=== PATIENT | male | born 1950 | race Caucasian/White ===

== ENCOUNTER 2021-09-15 15:05 | Inpatient (IN) | payer OTHER, SELFPAY ==
[2021-09-15] VITALS (7 sets, daily range): BP systolic 137–160; BP diastolic 59–105; PULSE 75–90; RESP 15–24; TEMP 36.2–36.9; O2SAT 96–98; BMI 33.6; BMI 37.0
--- NOTE | 2021-09-15 15:11 | DI.RAD.S_ITS ---
PROCEDURE: XR HIP W PEL IF DONE LT 2V INDICATIONS: pain fall TECHNIQUE: AP pelvis with lateral view(s) of the left hip(s). COMPARISON: None. FINDINGS: Bones: Moderately displaced and angulated comminuted fracture of the left intertrochanteric femur. Chronic appearing left obturator ring fracture. ORIF of the symphysis pubis. Soft tissues: The visualized bowel gas pattern is normal. No suspicious soft tissue calcifications. IMPRESSION: Left proximal femur fracture. Dictated by: Linsey Tyson M.D. on 09/15/2021 at 16:24 Approved by: Linsey Tyson M.D. on 09/15/2021 at 16:25
[2021-09-15] MEDS: HYDROMORPHONE 1 MG INJ IM ×2 (15:40→16:30)
--- NOTE | 2021-09-15 16:07 | ED_ITS ---
HPI - Fall <DO Sony Jett Last Filed: 09/15/21 20:45> General Chief Complaint: Fall Stated Complaint: Fall with Lt. hip pain Time Seen by Provider: 09/15/21 15:11 History of Present Illness HPI Narrative: Patient is a 70-year-old male history of type 2 diabetes noncompliant with medication anxiety depression presenting today with left hip pain. He is here from [place] trying to packing is are be ready for a RV trip. He was putting the car on the litzy and could not open the door so crawled out the clark driver's side window when he fell down. He did not hit his head or lose consciousness. He is not on anti-platelet or anticoagulation medication. He was unable to get himself up off the ground. Called for help for about 30 minutes. EMS eventual ly pain. The patient is having significant left hip pain legs are of equal length. No other injuries. Related Data Home Medications Medication Instructions Recorded Confirmed clonazepam 2 mg tablet 2 mg PO BID 09/15/21 09/15/21 Allergies Allergy/AdvReac Type Severity Reaction Status Date / Time No Known Drug Allergies Allergy Verified 09/15/21 15:16 <Martha Holland [facility] - Last Filed: 09/15/21 20:07> General Source: patient Mode of arrival: EMS Review of Systems <DO Sony Jett Last Filed: 09/15/21 20:45> Review of Systems Narrative: GENERAL: Denies chills, fatigue, malaise, fever, sweats, travel HEENT: Denies sinus pain, ear pain, sore throat, difficulty swallowing, neck pain RESPIRATORY: Denies dyspnea, cough, wheezing, hemoptysis, sputum. CARDIOVASCULAR: Denies chest pain, palpitations, orthopnea, edema GASTROINTESTINAL: Denies nausea, vomiting, abdominal pain, diarrhea, constipation, melena. : Denies dysuria, frequency, incontinence, hematuria, urinary retention, flank pain. MUSCULOSKELETAL: See HPI SKIN: No rash, no erythema, no pruritus NEUROLOGIC: Denies weakness, dizziness, headache, numbness, change in speech, confusion PSYCHIATRIC: No concerning psychosocial issues. 12 point review of systems is negative except for those stated above and HPI Patient History <DO Sony Jett Last Filed: 09/15/21 20:45> Medical History Diabetes Social History household members: spouse Smoking Status: Current every day smoker alcohol intake: current <CATHI Wilkins - Last Filed: 09/15/21 20:07> Smoking Status: Current every day smoker alcohol intake frequency: holidays/special occasions only Substance Use Type: does not use Exam <Deepika Carroll DO - Last Filed: 09/15/21 20:45> Initial Vital Signs Initial Vital Signs: Vital Signs Temperature 98.5 F 09/15/21 15:10 Pulse Rate 80 09/15/21 15:10 Respiratory Rate 15 09/15/21 15:10 Blood Pressure 137/91 H 09/15/21 15:10 Pulse Oximetry 96 09/15/21 15:10 GENERAL: Alert pleasant 70-year-old male BMI 33 HEENT: Head atraumatic,EOMI, pupils reactive, face symmetric, moist mucous membranes CARDIOVASCULAR: Regular rate and rhythm without murmurs, rubs or gallops. RESPIRATORY: Breath sounds equal bilaterally, no wheezes rales or rhonchi. ABDOMEN: Soft, nontender. Normoactive bowel sounds all 4 quadrants. No guarding or rebou EXTREMITIES: Normal range of motion, no clubbing or edema. Neurovascularly intact. Left lower hip pain no contusion legs are of equal length distal pedal pulse intact NEUROLOGICAL: Alert and oriented x4. Recreational Therapy Technician strength equal bilateral SKIN: Warm, dry, no laceration, no petechiae, no rashes or lesions. <CATHI Wilkins - Last Filed: 09/15/21 20:07> Initial Vital Signs Initial Vital Signs: Vital Signs Temperature 98.5 F 09/15/21 15:10 Pulse Rate 80 09/15/21 15:10 Respiratory Rate 15 09/15/21 15:10 Blood Pressure 137/91 H 09/15/21 15:10 Pulse Oximetry 96 09/15/21 15:10 Course <DO Sony Jett Last Filed: 09/15/21 20:45> Orders Ordered: ED Orders 09/15/21 15:11 XR hip w pel if done LT 2V Stat 09/15/21 16:36 BNP [NT-proBNP (BNP-Adult 18+)] Stat CBC Auto Diff [Complete Blood Count AUTO DIFF] Stat CMP [Comprehensive Metabolic Panel] Stat PT [Prothrombin Time INR] Stat PTT [Partial Thromboplastin Time] Stat Troponin & CK Cardiac Panel Stat 09/15/21 17:05 Chest [XR chest 1V] Stat Acetaminophen (Acetaminophen 325 Mg Tablet) 975 mg PO Q8HR PRN PRN Reason: Fever/Mild Pain (1-3) Dextrose (Dextrose 50 % In Water 25 Gm/50 Ml Syringe) 25 gm IV PRN PRN PRN Reason: Hypoglycemia Hydromorphone HCl (Hydromorphone 0.5 Mg Inj) 1 mg IV Q4H PRN PRN Reason: Breakthrough pain only (8-10) Last Admin: 09/15/21 20:08 Dose: 1 mg Documented by: HARRIS Insulin Human Lispro (Insulin Lispro 100 Unit/Ml 3ml Vial) 0 unit SUBCUT ACHS MARIA ELENA; Protocol Naloxone HCl (Naloxone 0.4 Mg/Ml Vial) 0.2 mg IV Q2MIN PRN PRN Reason: Opiate Reversal Ondansetron HCl (Ondansetron 4 Mg/2 Ml Inj) 4 mg IV Q8HR PRN PRN Reason: Nausea And Vomiting Oxycodone HCl (Oxycodone Ir 5 Mg Tablet) 5 mg PO Q4HR PRN PRN Reason: Pain, Moderate (4-6) Discontinued Medications Hydromorphone HCl (Hydromorphone 1 Mg Inj) 1 mg IM NOW ONE Stop: 09/15/21 15:39 Last Admin: 09/15/21 15:40 Dose: 1 mg Documented by: CHRISTINE Hydromorphone HCl (Hydromorphone 1 Mg Inj) 1 mg IM NOW ONE Stop: 09/15/21 16:21 Last Admin: 09/15/21 16:30 Dose: 1 mg Documented by: CHRISTINE Hydromorphone HCl (Hydromorphone 1 Mg Inj) 1 mg IV NOW ONE Stop: 09/15/21 17:55 Last Admin: 09/15/21 17:58 Dose: 1 mg Documented by: MARIO ALBERTO Vital Signs Vital signs: Vital Signs - 8 hr 09/15/21 15:10 09/15/21 15:11 09/15/21 15:30 Temperature 98.5 F Pulse Rate 76 86 76 Respiratory Rate 15 Blood Pressure 137/91 H 137/91 H Pulse Oximetry 97 97 96 09/15/21 18:00 Temperature Pulse Rate 90 Respiratory Rate 24 Blood Pressure 160/105 H Pulse Oximetry 96 <CATHI Wilkins - Last Filed: 09/15/21 20:07> Orders Ordered: ED Orders 09/15/21 15:11 XR hip w pel if done LT 2V Stat 09/15/21 16:36 BNP [NT-proBNP (BNP-Adult 18+)] Stat CBC Auto Diff [Complete Blood Count AUTO DIFF] Stat CMP [Comprehensive Metabolic Panel] Stat PT [Prothrombin Time INR] Stat PTT [Partial Thromboplastin Time] Stat Troponin & CK Cardiac Panel Stat 09/15/21 17:05 Chest [XR chest 1V] Stat Acetaminophen (Acetaminophen 325 Mg Tablet) 975 mg PO Q8HR PRN PRN Reason: Fever/Mild Pain (1-3) Dextrose (Dextrose 50 % In Water 25 Gm/50 Ml Syringe) 25 gm IV PRN PRN PRN Reason: Hypoglycemia Hydromorphone HCl (Hydromorphone 0.5 Mg Inj) 1 mg IV Q4H PRN PRN Reason: Breakthrough pain only (8-10) Last Admin: 09/15/21 20:08 Dose: 1 mg Documented by: HARRIS Insulin Human Lispro (Insulin Lispro 100 Unit/Ml 3ml Vial) 0 unit SUBCUT ACHS MARIA ELENA; Protocol Naloxone HCl (Naloxone 0.4 Mg/Ml Vial) 0.2 mg IV Q2MIN PRN PRN Reason: Opiate Reversal Ondansetron HCl (Ondansetron 4 Mg/2 Ml Inj) 4 mg IV Q8HR PRN PRN Reason: Nausea And Vomiting Oxycodone HCl (Oxycodone Ir 5 Mg Tablet) 5 mg PO Q4HR PRN PRN Reason: Pain, Moderate (4-6) Discontinued Medications Hydromorphone HCl (Hydromorphone 1 Mg Inj) 1 mg IM NOW ONE Stop: 09/15/21 15:39 Last Admin: 09/15/21 15:40 Dose: 1 mg Documented by: CHRISTINE Hydromorphone HCl (Hydromorphone 1 Mg Inj) 1 mg IM NOW ONE Stop: 09/15/21 16:21 Last Admin: 09/15/21 16:30 Dose: 1 mg Documented by: CHRISTINE Hydromorphone HCl (Hydromorphone 1 Mg Inj) 1 mg IV NOW ONE Stop: 09/15/21 17:55 Last Admin: 09/15/21 17:58 Dose: 1 mg Documented by: MARIO ALBERTO Vital Signs Vital signs: Vital Signs - 8 hr 09/15/21 15:10 09/15/21 15:11 09/15/21 15:30 Temperature 98.5 F Pulse Rate 76 86 76 Respiratory Rate 15 Blood Pressure 137/91 H 137/91 H Pulse Oximetry 97 97 96 09/15/21 18:00 Temperature Pulse Rate 90 Respiratory Rate 24 Blood Pressure 160/105 H Pulse Oximetry 96 MDM - Fall <Deepika Carroll DO - Last Filed: 09/15/21 20:45> Lab Data Result diagrams: 09/15/21 16:36 09/15/21 16:36 Labs: Lab Results 09/15/21 09/15/21 09/15/21 Range/Units 16:36 16:36 16:36 WBC 10.9 (4.5-11.0) X10^3/uL RBC 5.04 (4.5-5.9) X10^6/uL Hgb 15.8 (13.5-17.5) g/dL Hct 45.9 (41-53) % MCV 91.0 (80-100) fL MCH 31.3 (26-34) PG MCHC 34.4 (30-36) % RDW 14.2 (11.6-14.8) % Plt Count 119 L (150-400) X10^3/uL Neut % (Auto) 79.5 H (50-75) % Lymph % (Auto) 13.3 L (25-40) % [place] % (Auto) 5.3 (3-14) % Eos % (Auto) 1.3 L (2-4) % Baso % (Auto) 0.6 (0-2) % Neut # (Auto) 8700 H (1148-0532) /uL Lymph # (Auto) 1500 (0076-0476) /uL [place] # (Auto) 600 (0-900) /uL Eos # (Auto) 100 (0-450) /uL Baso # (Auto) 100 (0-100) /uL PT 12.1 (10.1-12.7) SECONDS INR 1.1 (0.9-1.3) APTT 32 (26.4-36.2) SECONDS Sodium 145 (137-145) mmol/L Potassium 3.4 (3.4-5.1) mmol/L Chloride 109 H (98-107) mmol/L Carbon Dioxide 27 (22-32) mmol/L BUN 19 (9-20) mg/dL Creatinine 1.19 (0.66-1.25) mg/dL Estimated GFR > 60 (>60) mL/min BUN/Creatinine Ratio 16.0 (6-22) Glucose 127 H (80-110) mg/dL Hemoglobin A1c (4.0-6.0) % Calcium 8.6 (8.4-10.2) mg/dL Total Bilirubin 0.6 (0.2-1.3) mg/dL AST 26 (17-59) IU/L ALT 21 (<50) IU/L Alkaline Phosphatase 81 (38-126) U/L Total Creatine Kinase (55-170) U/L CK-MB (CK-2) (<2.37) ng/mL CK-MB (CK-2) Rel Index (1.5-5.0) % Troponin I (0.01-0.034) ng/mL NT-Pro-B Natriuret Pep (<125) pg/mL Total Protein 7.0 (6.3-8.2) g/dL Albumin 4.2 (3.5-5.0) g/dL Globulin 2.8 (1.7-4.1) g/dL Albumin/Globulin Ratio 1.5 (1.0-2.8) 25-OH Vitamin D Total (30.0-100.0) ng/mL 09/15/21 09/15/21 09/15/21 Range/Units 16:36 16:36 16:36 WBC (4.5-11.0) X10^3/uL RBC (4.5-5.9) X10^6/uL Hgb (13.5-17.5) g/dL Hct (41-53) % MCV (80-100) fL MCH (26-34) PG MCHC (30-36) % RDW (11.6-14.8) % Plt Count (150-400) X10^3/uL Neut % (Auto) (50-75) % Lymph % (Auto) (25-40) % [place] % (Auto) (3-14) % Eos % (Auto) (2-4) % Baso % (Auto) (0-2) % Neut # (Auto) (4480-3409) /uL Lymph # (Auto) (3836-4048) /uL [place] # (Auto) (0-900) /uL Eos # (Auto) (0-450) /uL Baso # (Auto) (0-100) /uL PT (10.1-12.7) SECONDS INR (0.9-1.3) APTT (26.4-36.2) SECONDS Sodium (137-145) mmol/L Potassium (3.4-5.1) mmol/L Chloride (98-107) mmol/L Carbon Dioxide (22-32) mmol/L BUN (9-20) mg/dL Creatinine (0.66-1.25) mg/dL Estimated GFR (>60) mL/min BUN/Creatinine Ratio (6-22) Glucose (80-110) mg/dL Hemoglobin A1c 7.1 H (4.0-6.0) % Calcium (8.4-10.2) mg/dL Total Bilirubin (0.2-1.3) mg/dL AST (17-59) IU/L ALT (<50) IU/L Alkaline Phosphatase (38-126) U/L Total Creatine Kinase 252 H (55-170) U/L CK-MB (CK-2) 3.27 H (<2.37) ng/mL CK-MB (CK-2) Rel Index 1.3 L (1.5-5.0) % Troponin I 0.043 H (0.01-0.034) ng/mL NT-Pro-B Natriuret Pep 1390 H (<125) pg/mL Total Protein (6.3-8.2) g/dL Albumin (3.5-5.0) g/dL Globulin (1.7-4.1) g/dL Albumin/Globulin Ratio (1.0-2.8) 25-OH Vitamin D Total 17.9 L (30.0-100.0) ng/mL Imaging Data Extremity x-ray #1: Radiologist's Impression: [place] [address] XRay Report Signed Patient: Damien Dickens MR#: [id number] : 1950 Acct:[id number] Age/Sex: 70 / M Date of Service: 09/15/21 Loc: ED Accession Number: [id number] ?? Procedure: XR hip w pel if done LT 2V Ordering Provider: Deepika Carroll D.O. PROCEDURE:? XR HIP W PEL IF DONE LT 2V ? INDICATIONS:? pain fall ? TECHNIQUE:? AP pelvis with lateral view(s) of the left hip(s).? ? COMPARISON:? None. ? FINDINGS:? ? Bones:? Moderately displaced and angulated comminuted fracture of the left intertrochanteric femur.? Chronic appearing left obturator ring fracture.? ORIF of the symphysis pubis. ? Soft tissues:? The visualized bowel gas pattern is normal.? No suspicious soft tissue calcifications.? ? ? IMPRESSION:? Left proximal femur fracture. ? Dictated by: Linsey Tyson M.D. on 09/15/2021 at 16:24 ? ? Chest x-ray: Radiologist's Impression: [address] [place] [id number] XRay Report Signed Patient: Damien Dickens MR#: [id number] : 1950 Acct:[id number] Age/Sex: 70 / M Date of Service: 09/15/21 Loc: ED Accession Number: [id number] ?? Procedure: XR chest 1V Ordering Provider: Deepika Carroll D.O. PROCEDURE:? XR CHEST 1V ? INDICATIONS:? fall ? TECHNIQUE:? One view of the chest was acquired.? ? COMPARISON:? None. ? FINDINGS:? ? Surgical changes and devices:? None.? ? Lungs and pleura:? There are infiltrates in upper lobes bilaterally, right greater than left.? Diffuse interstitial prominence.? No pleural effusions or pneumothorax.? ? Mediastinum:? Mediastinal contours appear normal.? Heart size is mildly increased.? ? Bones and chest wall:? No suspicious bony lesions.? Overlying soft tissues appear unremarkable.? ? IMPRESSION:? ? 1. Infiltrates in upper lobes, right greater than left. 2. Diffuse bilateral interstitial prominence.? There is mild cardiomegaly.? The findings may be secondary to mild CHF or interstitial lung disease.? Recommend clinical correlation.? ? Dictated by: Chapo Joseph M.D. on 09/15/2021 at 17:29 ? ? MDM Narrative Medical decision making narrative: Patient overall is well appearing. He initially was a very hard IV start however we eventually did get 1. His PICC line called for midline of the secondary back up. Patient overall appears well pain is controlled with Dilaudid. Dr. Garcia updated patient's symptoms test results will likely go to the OR tomorrow. Dr. Farnsworth accepts patient <Martha Holland [facility] - Last Filed: 09/15/21 20:07> Lab Data Labs: Lab Results 09/15/21 09/15/21 09/15/21 Range/Units 16:36 16:36 16:36 WBC 10.9 (4.5-11.0) X10^3/uL RBC 5.04 (4.5-5.9) X10^6/uL Hgb 15.8 (13.5-17.5) g/dL Hct 45.9 (41-53) % MCV 91.0 (80-100) fL MCH 31.3 (26-34) PG MCHC 34.4 (30-36) % RDW 14.2 (11.6-14.8) % Plt Count 119 L (150-400) X10^3/uL Neut % (Auto) 79.5 H (50-75) % Lymph % (Auto) 13.3 L (25-40) % [place] % (Auto) 5.3 (3-14) % Eos % (Auto) 1.3 L (2-4) % Baso % (Auto) 0.6 (0-2) % Neut # (Auto) 8700 H (2200-3683) /uL Lymph # (Auto) 1500 (6960-0455) /uL [place] # (Auto) 600 (0-900) /uL Eos # (Auto) 100 (0-450) /uL Baso # (Auto) 100 (0-100) /uL PT 12.1 (10.1-12.7) SECONDS INR 1.1 (0.9-1.3) APTT 32 (26.4-36.2) SECONDS Sodium 145 (137-145) mmol/L Potassium 3.4 (3.4-5.1) mmol/L Chloride 109 H (98-107) mmol/L Carbon Dioxide 27 (22-32) mmol/L BUN 19 (9-20) mg/dL Creatinine 1.19 (0.66-1.25) mg/dL Estimated GFR > 60 (>60) mL/min BUN/Creatinine Ratio 16.0 (6-22) Glucose 127 H (80-110) mg/dL Hemoglobin A1c (4.0-6.0) % Calcium 8.6 (8.4-10.2) mg/dL Total Bilirubin 0.6 (0.2-1.3) mg/dL AST 26 (17-59) IU/L ALT 21 (<50) IU/L Alkaline Phosphatase 81 (38-126) U/L Total Creatine Kinase (55-170) U/L CK-MB (CK-2) (<2.37) ng/mL CK-MB (CK-2) Rel Index (1.5-5.0) % Troponin I (0.01-0.034) ng/mL NT-Pro-B Natriuret Pep (<125) pg/mL Total Protein 7.0 (6.3-8.2) g/dL Albumin 4.2 (3.5-5.0) g/dL Globulin 2.8 (1.7-4.1) g/dL Albumin/Globulin Ratio 1.5 (1.0-2.8) 25-OH Vitamin D Total (30.0-100.0) ng/mL 09/15/21 09/15/21 09/15/21 Range/Units 16:36 16:36 16:36 WBC (4.5-11.0) X10^3/uL RBC (4.5-5.9) X10^6/uL Hgb (13.5-17.5) g/dL Hct (41-53) % MCV (80-100) fL MCH (26-34) PG MCHC (30-36) % RDW (11.6-14.8) % Plt Count (150-400) X10^3/uL Neut % (Auto) (50-75) % Lymph % (Auto) (25-40) % [place] % (Auto) (3-14) % Eos % (Auto) (2-4) % Baso % (Auto) (0-2) % Neut # (Auto) (9778-8378) /uL Lymph # (Auto) (6913-4695) /uL [place] # (Auto) (0-900) /uL Eos # (Auto) (0-450) /uL Baso # (Auto) (0-100) /uL PT (10.1-12.7) SECONDS INR (0.9-1.3) APTT (26.4-36.2) SECONDS Sodium (137-145) mmol/L Potassium (3.4-5.1) mmol/L Chloride (98-107) mmol/L Carbon Dioxide (22-32) mmol/L BUN (9-20) mg/dL Creatinine (0.66-1.25) mg/dL Estimated GFR (>60) mL/min BUN/Creatinine Ratio (6-22) Glucose (80-110) mg/dL Hemoglobin A1c 7.1 H (4.0-6.0) % Calcium (8.4-10.2) mg/dL Total Bilirubin (0.2-1.3) mg/dL AST (17-59) IU/L ALT (<50) IU/L Alkaline Phosphatase (38-126) U/L Total Creatine Kinase 252 H (55-170) U/L CK-MB (CK-2) 3.27 H (<2.37) ng/mL CK-MB (CK-2) Rel Index 1.3 L (1.5-5.0) % Troponin I 0.043 H (0.01-0.034) ng/mL NT-Pro-B Natriuret Pep 1390 H (<125) pg/mL Total Protein (6.3-8.2) g/dL Albumin (3.5-5.0) g/dL Globulin (1.7-4.1) g/dL Albumin/Globulin Ratio (1.0-2.8) 25-OH Vitamin D Total 17.9 L (30.0-100.0) ng/mL Discharge Plan Departure Patient Disposition: Admitted As Inpatient Clinical Impression: Fracture, proximal femur Admit Date/Time: 09/15/21 18:22 Admit Provider: Papo Farnsworth
--- NOTE | 2021-09-15 16:21 | ED.FALL ---
HPI - Fall General Chief Complaint: Fall Stated Complaint: Fall with Lt. hip pain Time Seen by Provider: 09/15/21 15:11 Source: patient Mode of arrival: EMS History of Present Illness HPI Narrative: The patient is a 70-year-old male Related Data Home Medications Medication Instructions Recorded Confirmed clonazepam 2 mg tablet 2 mg PO BID 09/15/21 09/15/21 Allergies Allergy/AdvReac Type Severity Reaction Status Date / Time No Known Drug Allergies Allergy Verified 09/15/21 15:16 Patient History Medical History Diabetes Social History household members: spouse Smoking Status: Current every day smoker alcohol intake: current Smoking Status: Current every day smoker alcohol intake frequency: holidays/special occasions only Substance Use Type: does not use Exam Initial Vital Signs Initial Vital Signs: Vital Signs Temperature 98.5 F 09/15/21 15:10 Pulse Rate 80 09/15/21 15:10 Respiratory Rate 15 09/15/21 15:10 Blood Pressure 137/91 H 09/15/21 15:10 Pulse Oximetry 96 09/15/21 15:10 Course Orders Ordered: ED Orders 09/15/21 15:11 XR hip w pel if done LT 2V Stat 09/15/21 16:36 BNP [NT-proBNP (BNP-Adult 18+)] Stat CBC Auto Diff [Complete Blood Count AUTO DIFF] Stat CMP [Comprehensive Metabolic Panel] Stat PT [Prothrombin Time INR] Stat PTT [Partial Thromboplastin Time] Stat Troponin & CK Cardiac Panel Stat 09/15/21 17:05 Chest [XR chest 1V] Stat Acetaminophen (Acetaminophen 325 Mg Tablet) 975 mg PO Q8HR PRN PRN Reason: Fever/Mild Pain (1-3) Dextrose (Dextrose 50 % In Water 25 Gm/50 Ml Syringe) 25 gm IV PRN PRN PRN Reason: Hypoglycemia Hydromorphone HCl (Hydromorphone 0.5 Mg Inj) 1 mg IV Q4H PRN PRN Reason: Breakthrough pain only (8-10) Last Admin: 09/15/21 20:08 Dose: 1 mg Documented by: HARRIS Insulin Human Lispro (Insulin Lispro 100 Unit/Ml 3ml Vial) 0 unit SUBCUT ACHS MARIA ELENA; Protocol Naloxone HCl (Naloxone 0.4 Mg/Ml Vial) 0.2 mg IV Q2MIN PRN PRN Reason: Opiate Reversal Ondansetron HCl (Ondansetron 4 Mg/2 Ml Inj) 4 mg IV Q8HR PRN PRN Reason: Nausea And Vomiting Oxycodone HCl (Oxycodone Ir 5 Mg Tablet) 5 mg PO Q4HR PRN PRN Reason: Pain, Moderate (4-6) Discontinued Medications Hydromorphone HCl (Hydromorphone 1 Mg Inj) 1 mg IM NOW ONE Stop: 09/15/21 15:39 Last Admin: 09/15/21 15:40 Dose: 1 mg Documented by: CHRISTINE Hydromorphone HCl (Hydromorphone 1 Mg Inj) 1 mg IM NOW ONE Stop: 09/15/21 16:21 Last Admin: 09/15/21 16:30 Dose: 1 mg Documented by: CHRISTINE Hydromorphone HCl (Hydromorphone 1 Mg Inj) 1 mg IV NOW ONE Stop: 09/15/21 17:55 Last Admin: 09/15/21 17:58 Dose: 1 mg Documented by: MARIO ALBERTO Vital Signs Vital signs: Vital Signs - 8 hr 09/15/21 15:10 09/15/21 15:11 09/15/21 15:30 Temperature 98.5 F Pulse Rate 76 86 76 Respiratory Rate 15 Blood Pressure 137/91 H 137/91 H Pulse Oximetry 97 97 96 09/15/21 18:00 Temperature Pulse Rate 90 Respiratory Rate 24 Blood Pressure 160/105 H Pulse Oximetry 96 - Fall Lab Data Result diagrams: 09/15/21 16:36 09/15/21 16:36 Labs: Lab Results 09/15/21 09/15/21 09/15/21 Range/Units 16:36 16:36 16:36 WBC 10.9 (4.5-11.0) X10^3/uL RBC 5.04 (4.5-5.9) X10^6/uL Hgb 15.8 (13.5-17.5) g/dL Hct 45.9 (41-53) % MCV 91.0 (80-100) fL MCH 31.3 (26-34) PG MCHC 34.4 (30-36) % RDW 14.2 (11.6-14.8) % Plt Count 119 L (150-400) X10^3/uL Neut % (Auto) 79.5 H (50-75) % Lymph % (Auto) 13.3 L (25-40) % [place] % (Auto) 5.3 (3-14) % Eos % (Auto) 1.3 L (2-4) % Baso % (Auto) 0.6 (0-2) % Neut # (Auto) 8700 H (1206-7511) /uL Lymph # (Auto) 1500 (0590-9672) /uL [place] # (Auto) 600 (0-900) /uL Eos # (Auto) 100 (0-450) /uL Baso # (Auto) 100 (0-100) /uL PT 12.1 (10.1-12.7) SECONDS INR 1.1 (0.9-1.3) APTT 32 (26.4-36.2) SECONDS Sodium 145 (137-145) mmol/L Potassium 3.4 (3.4-5.1) mmol/L Chloride 109 H (98-107) mmol/L Carbon Dioxide 27 (22-32) mmol/L BUN 19 (9-20) mg/dL Creatinine 1.19 (0.66-1.25) mg/dL Estimated GFR > 60 (>60) mL/min BUN/Creatinine Ratio 16.0 (6-22) Glucose 127 H (80-110) mg/dL Hemoglobin A1c (4.0-6.0) % Calcium 8.6 (8.4-10.2) mg/dL Total Bilirubin 0.6 (0.2-1.3) mg/dL AST 26 (17-59) IU/L ALT 21 (<50) IU/L Alkaline Phosphatase 81 (38-126) U/L Total Creatine Kinase (55-170) U/L CK-MB (CK-2) (<2.37) ng/mL CK-MB (CK-2) Rel Index (1.5-5.0) % Troponin I (0.01-0.034) ng/mL NT-Pro-B Natriuret Pep (<125) pg/mL Total Protein 7.0 (6.3-8.2) g/dL Albumin 4.2 (3.5-5.0) g/dL Globulin 2.8 (1.7-4.1) g/dL Albumin/Globulin Ratio 1.5 (1.0-2.8) 25-OH Vitamin D Total (30.0-100.0) ng/mL 09/15/21 09/15/21 09/15/21 Range/Units 16:36 16:36 16:36 WBC (4.5-11.0) X10^3/uL RBC (4.5-5.9) X10^6/uL Hgb (13.5-17.5) g/dL Hct (41-53) % MCV (80-100) fL MCH (26-34) PG MCHC (30-36) % RDW (11.6-14.8) % Plt Count (150-400) X10^3/uL Neut % (Auto) (50-75) % Lymph % (Auto) (25-40) % Harnett % (Auto) (3-14) % Eos % (Auto) (2-4) % Baso % (Auto) (0-2) % Neut # (Auto) (0322-3068) /uL Lymph # (Auto) (6785-1503) /uL Harnett # (Auto) (0-900) /uL Eos # (Auto) (0-450) /uL Baso # (Auto) (0-100) /uL PT (10.1-12.7) SECONDS INR (0.9-1.3) APTT (26.4-36.2) SECONDS Sodium (137-145) mmol/L Potassium (3.4-5.1) mmol/L Chloride (98-107) mmol/L Carbon Dioxide (22-32) mmol/L BUN (9-20) mg/dL Creatinine (0.66-1.25) mg/dL Estimated GFR (>60) mL/min BUN/Creatinine Ratio (6-22) Glucose (80-110) mg/dL Hemoglobin A1c 7.1 H (4.0-6.0) % Calcium (8.4-10.2) mg/dL Total Bilirubin (0.2-1.3) mg/dL AST (17-59) IU/L ALT (<50) IU/L Alkaline Phosphatase (38-126) U/L Total Creatine Kinase 252 H (55-170) U/L CK-MB (CK-2) 3.27 H (<2.37) ng/mL CK-MB (CK-2) Rel Index 1.3 L (1.5-5.0) % Troponin I 0.043 H (0.01-0.034) ng/mL NT-Pro-B Natriuret Pep 1390 H (<125) pg/mL Total Protein (6.3-8.2) g/dL Albumin (3.5-5.0) g/dL Globulin (1.7-4.1) g/dL Albumin/Globulin Ratio (1.0-2.8) 25-OH Vitamin D Total 17.9 L (30.0-100.0) ng/mL Discharge Plan Departure Admit Date/Time: 09/15/21 18:22 Admit Provider: Papo Farnsworth
[2021-09-15 16:41] LABS: Add Manual Diff / Slide Review NO; Basophils Absolute Auto 100 /uL (0-100); Basophils Percent Auto 0.6 % (0-2); Eosinophils Absolute Auto 100 /uL (0-450); Eosinophils Percent Auto 1.3 % (2-4); Hematocrit 45.9 % (41-53); Hemoglobin 15.8 g/dL (13.5-17.5); Lymphocytes Absolute Auto 1500 /uL (1100-4500); Lymphocytes Percent Auto 13.3 % (25-40); Mean Corpuscular HGB Conc 34.4 % (30-36); Mean Corpuscular Hemoglobin 31.3 PG (26-34); Monocytes Absolute Auto 600 /uL (0-900); Monocytes Percent Auto 5.3 % (3-14); Neutrophils Absolute Auto 8700 /uL (1500-7000); Neutrophils Percent Auto 79.5 % (50-75); Platelet Count 119 X10^3/uL (150-400); Red Blood Cell Count 5.04 X10^6/uL (4.5-5.9); Red Cell Distribution Width 14.2 % (11.6-14.8); White Blood Cell Count 10.9 X10^3/uL (4.5-11.0)
[2021-09-15 16:51] LABS: INR 1.1 (0.9-1.3); Prothrombin Time 12.1 SECONDS (10.1-12.7)
[2021-09-15 16:53] LABS: PTT Partial Thromboplastin Tim 32 SECONDS (26.4-36.2)
[2021-09-15 17:00] LABS: Alanine Aminotransferase 21 IU/L (<50); Albumin 4.2 g/dL (3.5-5.0); Albumin Globulin Ratio 1.5 (1.0-2.8); Alkaline Phosphatase 81 U/L (38-126); Aspartate Aminotransferase 26 IU/L (17-59); Bilirubin Total 0.6 mg/dL (0.2-1.3); Blood Urea Nitrogen 19 mg/dL (9-20); Calcium 8.6 mg/dL (8.4-10.2); Carbon Dioxide 27 mmol/L (22-32); Chloride 109 mmol/L (98-107); Estimated Glomerular Filt Rate > 60 mL/min (>60); Globulin 2.8 g/dL (1.7-4.1); Glucose 127 mg/dL (80-110); HEMOLYSIS < 15 (0-50); Potassium 3.4 mmol/L (3.4-5.1); Sodium 145 mmol/L (137-145)
--- NOTE | 2021-09-15 17:05 | DI.RAD.S_ITS ---
PROCEDURE: XR CHEST 1V INDICATIONS: fall TECHNIQUE: One view of the chest was acquired. COMPARISON: None. FINDINGS: Surgical changes and devices: None. Lungs and pleura: There are infiltrates in upper lobes bilaterally, right greater than left. Diffuse interstitial prominence. No pleural effusions or pneumothorax. Mediastinum: Mediastinal contours appear normal. Heart size is mildly increased. Bones and chest wall: No suspicious bony lesions. Overlying soft tissues appear unremarkable. IMPRESSION: 1. Infiltrates in upper lobes, right greater than left. 2. Diffuse bilateral interstitial prominence. There is mild cardiomegaly. The findings may be secondary to mild CHF or interstitial lung disease. Recommend clinical correlation. Dictated by: Chapo Joseph M.D. on 09/15/2021 at 17:29 Approved by: Chapo Joseph M.D. on 09/15/2021 at 17:31
[2021-09-15] MEDS: HYDROMORPHONE 1 MG INJ IV (17:58)
[2021-09-15 18:09] LABS: Creatine Kinase 252 U/L (55-170)
[2021-09-15 18:22] LABS: NT-proBNP (BNP-Adult 18+) 1390 pg/mL (<125); Troponin I 0.043 ng/mL (0.01-0.034)
[2021-09-15 18:24] LABS: CKMB % Relative Index 1.3 % (1.5-5.0); Creatine Kinase MB 3.27 ng/mL (<2.37)
--- NOTE | 2021-09-15 18:59 | DI.ECHO.S_ITS ---
[facility] +---------+ : : [address] : [address] : : : : [id number] : : : : Phone: [phone]---------+ Echocardiogram Report + + :Name: CHARLY DESHPANDE Study Date: 09/16/2021 Height: 67 in : :[facility] ReadingLocation: Weight: 236 lb : : Gender: Male BSA: 2.2 m2 : :: 1950 Age: 70 yrs BP: 130/69 mmHg: :Reason For Study: SOB : :Ordering Physician: MANJIT, : :FELA FOY Performed By: Donovan Joshi : :Referring: FELA SARAVIA : + + Interpretation Summary The left ventricle is normal in size. Left ventricular systolic function is moderately reduced. The ejection fraction is estimated to be 35-40%. There is mild global hypokinesis of the left ventricle. There is mid anterolateral wall severe hypokinesis. There is apical lateral wall severe hypokinesis. Diastolic function could not be accurately assessed due to unobtainable data. The right ventricle is normal in size and function. Pulmonary artery pressures cannot be estimated because of the lack of a measurable TR jet velocity. Both atria are normal in size. There is no significant valvular heart disease. The aortic root is normal size. Procedure: A two-dimensional transthoracic echocardiogram with color flow and Doppler was performed. The study quality was technically difficult. There is no prior echocardiogram noted for this patient. A contrast injection of Definity was performed to improve assessment of LV function. Left Ventricle: The left ventricle is normal in size. There is mild concentric left ventricular hypertrophy. Left ventricular systolic function is moderately reduced. The ejection fraction is estimated to be 35-40%. There is mild global hypokinesis of the left ventricle. There is mid anterolateral wall severe hypokinesis. There is apical lateral wall severe hypokinesis. Diastolic function could not be accurately assessed due to unobtainable data. Right Ventricle: The right ventricle is normal in size and function. Atria: Both atria are normal in size. The interatrial septum grossly appears intact with no obvious evidence for an atrial septal defect. Mitral Valve: The mitral valve is normal in structure and function. There is trace mitral regurgitation. Aortic Valve: There is mild aortic valve sclerosis. No aortic regurgitation is present. Tricuspid Valve: The tricuspid valve is normal in structure and function. There is a trace or physiologic amount of tricuspid regurgitation. Pulmonary artery pressures cannot be estimated because of the lack of a measurable TR jet velocity. Pulmonic Valve: The pulmonic valve is normal in structure and function. There is no pulmonic valvular regurgitation. There is no significant valvular heart disease. Great Vessels: The aortic root is normal size. The ascending aorta could not be visualized. The IVC is of normal diameter and collapses greater than 50% with a sniff. This suggests a low right atrial pressure of 3 mm Hg. Pericardium/ Pleura There is no pericardial effusion. There is no pleural effusion. MMode/2D Measurements & Calculations LVIDd: 5.5 cm LVOT diam: 2.1 cm LVIDs: 4.3 cm Ao root diam: 3.1 cm FS: 22.0 % IVSd: 1.3 cm LVPWd: 1.3 cm LV lopez. diameter/BSA (cm/m^2): 2.5 LV sys. diameter/BSA (cm/m^2): 2.0 LA A2 area: 17.2 cm2 RA long axis: 5.2 cm LA A4 area: 20.9 cm2 RA area: 17.4 cm2 LA length (vol): 6.2 cm RA vol: 49.3 ml LA vol: 49.4 ml RA : 22.7 ml/m2 LA vol index: 22.8 ml/m2 TAPSE: 2.1 cm Doppler Measurements & Calculations Ao V2 max: 165.3 cm/sec LVOT Max Forrest: 90.1 cm/sec Ao V2 mean: 114.6 cm/sec LV V1 max P.2 mmHg Ao max P.9 mmHg LV V1 VTI: 17.8 cm Ao mean P.8 mmHg ENZO(I,D): 2.1 cm2 Ao V2 VTI: 29.2 cm ENZO(V,D): 1.9 cm2 sev ratio: 0.61 ENZO indexed to BSA (cm^2/m^2): 0.98 MV E max forrest: 74.6 cm/sec SV(LVOT): 61.9 ml MV A max forrest: 97.5 cm/sec MV E/A: 0.77 Med Peak E' Forrest: 4.9 cm/sec E/E' med: 15.1 Lat Peak E' Forrest: 4.9 cm/sec E/E' lat: 15.1 E/e' average: 15.1 MV dec time: 0.29 sec Reading Physician:08:54 AM
--- NOTE | 2021-09-15 19:02 | PC.NURSE ---
Pt arrived from ED at 1635, A&Ox3, disoriented to location (he knew he was at the hospital but could not remember the name of the town). C/o 12/10 pain to L hip, but does not appear to be in any acute distress. VSS on RA, lung sounds diminished, bowel tones present. +radial and +pedal pulses, neuropathy to bilat UE/LE at baseline. Last BM this am, loose at baseline. Pt oriented to room and call light, provided with sandwich and pudding. Will continue to monitor.
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
[2021-09-15 20:07] LABS: Hemoglobin A1C% w Est Avg Glu 7.1 % (4.0-6.0)
[2021-09-15] MEDS: HYDROMORPHONE 0.5 MG INJ 1 MG IV (20:08)
[2021-09-15 20:22] LABS: Vitamin D 25 Hydroxy (D3) 17.9 ng/mL (30.0-100.0)
--- NOTE | 2021-09-15 21:07 | PM.HP.1 ---
History of Present Illness History of Present Illness Date Patient Seen: 09/15/21 Time Patient Seen: 20:45 Chief complaint: Fall with Lt. hip pain Narrative: Damien Dickens is a 70-year-old male traveling from his home state of [place]. He is a difficult historian and goes off on tangents when providing history. Had a family member in the area that had sold him a motor home and he had planned on placing his car on a ramp trailer. From what I could gather it sounded like between the car and the ramp trailer he was unable to get the car firmly secured on the ramp trailer. He went inside the car and when he was ready to get out of the car he was unable to open the door so he crawled out the window, fell landing on his left hip. He denies hitting his head, he does have a scar on his nose after having undergone what appears to be Mohs surgery for basal cell carcinoma, he denies blacking out, headaches, visual changes, difficulty swallowing, shortness of breath, chest pain, nausea vomiting, dysuria, he does state he has chronic diarrhea due to having his gallbladder removed and insists on taking Imodium scheduled. He is also diabetic however he quit taking metformin because his brother is ?a DrEvelin Of chemistry, makes a lot of money and knows what he is talking about. He is without a PCP in [place] , she relocated to a different area and he has had a hard time finding a new one. It is unclear where he actually resides as he states he was living in [place] but apparently keeps a legal address in [place]. Chest x-ray ordered in the ED indicated bilateral interstitial prominence and mild cardiomegaly possibly secondary to mild CHF for interstitial lung disease. He did have a proBNP of 1300. X-ray of the left hip indicates moderately displaced and angulated comminuted fracture of the left intratrochanteric femur and a chronic appearing left obturator ring fracture. Is afebrile, blood pressure 155/88, heart rate 83, respiratory rate 16, oxygen saturation 97% on room air he weighs 107.5 kg with a BMI of 37. Patient History Medical History (Updated 09/15/21 @ 23:03 by CATHI Suero) Anxiety disorder Diabetes type 2, uncontrolled Morbid obesity with BMI of 40.0-44.9, adult Surgical History (Updated 09/15/21 @ 23:01 by CATHI Suero) Hx of cholecystectomy Family & Social History Family History (Updated 09/15/21 @ 23:03 by CATHI Suero) Mother Status cardiac pacemaker Father Fall down stairs Son Leukemia Social History: household members spouse Prior Living Arrangements RV Safety & Behavioral: Feels Safe in Current Yes Environment Been Physically Hurt or No Threatened By a Person Tobacco & Substance use: Tobacco type cigars Smoking Status Current every day smoker alcohol intake current alcohol intake frequency holiday/special occasion Substance Use Type does not use Meds Home Medications and Allergies Home Medications Medication Instructions Recorded Confirmed Type clonazepam 2 mg tablet 2 mg PO BID 09/15/21 09/15/21 History Allergies Allergy/AdvReac Type Severity Reaction Status Date / Time No Known Drug Allergies Allergy Verified 09/15/21 15:16 Review of Systems Review of Systems ROS: Yes All systems reviewed with the patient and are negative except as otherwise documented Exam Vital Signs (past 8 hours): - 09/15/21 15:10 09/15/21 15:11 09/15/21 15:30 Temperature 98.5 F Pulse Rate 76 86 76 Respiratory Rate 15 Blood Pressure 137/91 H 137/91 H Pulse Oximetry 97 97 96 09/15/21 18:00 09/15/21 18:56 Temperature Pulse Rate 90 83 Respiratory Rate 24 16 Blood Pressure 160/105 H 155/88 H Pulse Oximetry 96 97 Oxygen Delivery Method Room Air Objective Labs Result Diagrams: 09/15/21 16:36 09/15/21 16:36 Labs: Laboratory Results - last 24 hr 09/15/21 09/15/21 09/15/21 16:36 16:36 16:36 WBC 10.9 RBC 5.04 Hgb 15.8 Hct 45.9 MCV 91.0 MCH 31.3 MCHC 34.4 RDW 14.2 Plt Count 119 L Neut % (Auto) 79.5 H Lymph % (Auto) 13.3 L [place] % (Auto) 5.3 Eos % (Auto) 1.3 L Baso % (Auto) 0.6 Neut # (Auto) 8700 H Lymph # (Auto) 1500 [place] # (Auto) 600 Eos # (Auto) 100 Baso # (Auto) 100 PT 12.1 INR 1.1 APTT 32 Sodium 145 Potassium 3.4 Chloride 109 H Carbon Dioxide 27 BUN 19 Creatinine 1.19 Estimated GFR > 60 BUN/Creatinine Ratio 16.0 Glucose 127 H Hemoglobin A1c Calcium 8.6 Total Bilirubin 0.6 AST 26 ALT 21 Alkaline Phosphatase 81 Total Creatine Kinase CK-MB (CK-2) CK-MB (CK-2) Rel Index Troponin I NT-Pro-B Natriuret Pep Total Protein 7.0 Albumin 4.2 Globulin 2.8 Albumin/Globulin Ratio 1.5 25-OH Vitamin D Total 09/15/21 09/15/21 09/15/21 16:36 16:36 16:36 WBC RBC Hgb Hct MCV MCH MCHC RDW Plt Count Neut % (Auto) Lymph % (Auto) [place] % (Auto) Eos % (Auto) Baso % (Auto) Neut # (Auto) Lymph # (Auto) [place] # (Auto) Eos # (Auto) Baso # (Auto) PT INR APTT Sodium Potassium Chloride Carbon Dioxide BUN Creatinine Estimated GFR BUN/Creatinine Ratio Glucose Hemoglobin A1c 7.1 H Calcium Total Bilirubin AST ALT Alkaline Phosphatase Total Creatine Kinase 252 H CK-MB (CK-2) 3.27 H CK-MB (CK-2) Rel Index 1.3 L Troponin I 0.043 H NT-Pro-B Natriuret Pep 1390 H Total Protein Albumin Globulin Albumin/Globulin Ratio 25-OH Vitamin D Total 17.9 L Assessment & Plan Time Spent With Patient Critical Care time: I spent a total of [] minutes of critical care time on this patient's care today; this time is exclusive of procedural time. Quality VTE Deep Vein Thrombosis/Pulmonary Embolism Present on Admission: No
[2021-09-15] MEDS: LOPERAMIDE 2 MG CAPSULE PO (22:50)
[2021-09-15] MEDS: ACETAMINOPHEN 325 MG TABLET 975 MG PO (22:50)
[2021-09-15] MEDS: clonazePAM 0.5 MG TABLET PO (22:50)
[2021-09-15] MEDS: TRAMADOL 50 MG TABLET PO (22:51)
[2021-09-15] MEDS: TRAZODONE 50 MG TABLET PO (22:51)
--- NOTE | 2021-09-15 23:05 | PM.HP.1 ---
History of Present Illness History of Present Illness Chief complaint: Fall with Lt. hip pain Narrative: Damien Dickens is a 70-year-old male traveling from his home state of [place]. He is a difficult historian and goes off on tangents when providing history. Had a family member in the area that had sold him a motor home and he had planned on placing his car on a ramp trailer. From what I could gather it sounded like between the car and the ramp trailer he was unable to get the car firmly secured on the ramp trailer. He went inside the car and when he was ready to get out of the car he was unable to open the door so he crawled out the window, fell landing on his left hip. He denies hitting his head, he does have a scar on his nose after having undergone what appears to be Mohs surgery for basal cell carcinoma, he denies blacking out, headaches, visual changes, difficulty swallowing, shortness of breath, chest pain, nausea vomiting, dysuria, he does state he has chronic diarrhea due to having his gallbladder removed and insists on taking Imodium scheduled. He is also diabetic however he quit taking metformin because his brother is ?a DrEvelin Of chemistry, makes a lot of money and knows what he is talking about. He is without a PCP in [place] , she relocated to a different area and he has had a hard time finding a new one. It is unclear where he actually resides as he states he was living in [place] but apparently keeps a legal address in [place]. Chest x-ray ordered in the ED indicated bilateral interstitial prominence and mild cardiomegaly possibly secondary to mild CHF for interstitial lung disease. He did have a proBNP of 1300. X-ray of the left hip indicates moderately displaced and angulated comminuted fracture of the left intratrochanteric femur and a chronic appearing left obturator ring fracture. Is afebrile, blood pressure 155/88, heart rate 83, respiratory rate 16, oxygen saturation 97% on room air he weighs 107.5 kg with a BMI of 37. Patient History Medical History (Updated 09/15/21 @ 23:03 by CATHI Suero) Anxiety disorder Diabetes type 2, uncontrolled Morbid obesity with BMI of 40.0-44.9, adult Surgical History (Updated 09/15/21 @ 23:01 by CATHI Suero) Hx of cholecystectomy Family & Social History Family History (Updated 09/15/21 @ 23:03 by CATHI Suero) Mother Status cardiac pacemaker Father Fall down stairs Son Leukemia Social History: household members spouse Prior Living Arrangements RV Safety & Behavioral: Feels Safe in Current Yes Environment Been Physically Hurt or No Threatened By a Person Tobacco & Substance use: Tobacco type cigars Smoking Status Current every day smoker alcohol intake current alcohol intake frequency holiday/special occasion Substance Use Type does not use Meds Home Medications and Allergies Home Medications Medication Instructions Recorded Confirmed Type clonazepam 2 mg tablet 2 mg PO BID 09/15/21 09/15/21 History Allergies Allergy/AdvReac Type Severity Reaction Status Date / Time No Known Drug Allergies Allergy Verified 09/15/21 15:16 Review of Systems Review of Systems ROS: Yes All systems reviewed with the patient and are negative except as otherwise documented Exam Vital Signs (past 8 hours): - 09/15/21 15:10 09/15/21 15:11 09/15/21 15:30 Temperature 98.5 F Pulse Rate 76 86 76 Respiratory Rate 15 Blood Pressure 137/91 H 137/91 H Pulse Oximetry 97 97 96 09/15/21 18:00 09/15/21 18:56 Temperature Pulse Rate 90 83 Respiratory Rate 24 16 Blood Pressure 160/105 H 155/88 H Pulse Oximetry 96 97 Oxygen Delivery Method Room Air Narrative Exam Narrative: Gen: Alert, oriented, obese 70 y.o. male, anxious HEENT: normocephalic, atraumatic, conjunctiva clear, sclera non-icteric, nose with extensive scarring over the lower bridge, oral mucosa pink and moist Neck: supple, full ROM, no JVD, trachea is midline Resp: Lungs CTA, non-labored breathing CV: RRR, no murmur or rubs Abd: soft, non-tender, normoactive BTs Skin: no lesions or rashes, dry and intact Neuro: Alert and oriented X 4 w/no focal deficits. Speech clear and coherent. Extremities: Unable to ambulate due to fracture and difficult to turn over, is normally ambulatory, negative Juno?s sign Psyche: odd affect. Objective Labs Result Diagrams: 09/15/21 16:36 09/15/21 16:36 Labs: Laboratory Results - last 24 hr 09/15/21 09/15/21 09/15/21 16:36 16:36 16:36 WBC 10.9 RBC 5.04 Hgb 15.8 Hct 45.9 MCV 91.0 MCH 31.3 MCHC 34.4 RDW 14.2 Plt Count 119 L Neut % (Auto) 79.5 H Lymph % (Auto) 13.3 L [place] % (Auto) 5.3 Eos % (Auto) 1.3 L Baso % (Auto) 0.6 Neut # (Auto) 8700 H Lymph # (Auto) 1500 [place] # (Auto) 600 Eos # (Auto) 100 Baso # (Auto) 100 PT 12.1 INR 1.1 APTT 32 Sodium 145 Potassium 3.4 Chloride 109 H Carbon Dioxide 27 BUN 19 Creatinine 1.19 Estimated GFR > 60 BUN/Creatinine Ratio 16.0 Glucose 127 H Hemoglobin A1c Calcium 8.6 Total Bilirubin 0.6 AST 26 ALT 21 Alkaline Phosphatase 81 Total Creatine Kinase CK-MB (CK-2) CK-MB (CK-2) Rel Index Troponin I NT-Pro-B Natriuret Pep Total Protein 7.0 Albumin 4.2 Globulin 2.8 Albumin/Globulin Ratio 1.5 25-OH Vitamin D Total 09/15/21 09/15/21 09/15/21 16:36 16:36 16:36 WBC RBC Hgb Hct MCV MCH MCHC RDW Plt Count Neut % (Auto) Lymph % (Auto) [place] % (Auto) Eos % (Auto) Baso % (Auto) Neut # (Auto) Lymph # (Auto) [place] # (Auto) Eos # (Auto) Baso # (Auto) PT INR APTT Sodium Potassium Chloride Carbon Dioxide BUN Creatinine Estimated GFR BUN/Creatinine Ratio Glucose Hemoglobin A1c 7.1 H Calcium Total Bilirubin AST ALT Alkaline Phosphatase Total Creatine Kinase 252 H CK-MB (CK-2) 3.27 H CK-MB (CK-2) Rel Index 1.3 L Troponin I 0.043 H NT-Pro-B Natriuret Pep 1390 H Total Protein Albumin Globulin Albumin/Globulin Ratio 25-OH Vitamin D Total 17.9 L Assessment & Plan Assessment & Plan narrative: Filemon Dickens is admitted for further cardiac workup in advance of anticipated left intertrochanteric hip fracture repair. 1. left intertrochanteric hip fracture, acute, present on admission, acute, present on admission Dr. Garcia has seen the patient and plans to take him into the OR in the afternoon Likely NPO after 7:00 a.m. Pain control with scheduled Tylenol, as needed tramadol, oxycodone, IV morphine and IV Dilaudid for breakthrough pain He will need to stop his clonazepam if orthopedic surgery add Ativan to his regimen for extremity cramping. 2. Elevated proBNP, unknown if acute Patient is scheduled for an echocardiogram in the morning, we do not have any records from his PCP in [place] 3. Diabetes type 2 uncontrolled, present on admission with an A1c of 7.1 Patient stop taking metformin at the behest of his brother who he states is a doctor of chemistry Diabetic hyperglycemic orders have been explained to the patient. He will be on a carb controlled diet until the morning than NPO with glucose checks q.6 hours and insulin correction He will need diabetic Education 4. Vitamin-D deficiency likely chronic likely chronic He is initiated on oral vitamin-D 5000 units daily 5. Stated anxiety disorder Patient states he takes clonazepam 0.5 mg twice daily scheduled I have informed the patient that he will not be able to have this if he is given Ativan for muscle spasms Patient presents more bipolar to my mind, flight of thoughts, tangential history. He may benefit from a psych eval. 6. Risk assessment TSH and Lipid panel in the morning VTE Prophylaxis: Wells risk score 1 pharmacological VTE prophylaxis not indicated due to pending surgery[X] Bilateral SCDs Patient is admitted to the inpatient service due to the severity of disease, risks of further disease progression and this stay is expected to exceed 2 midnights. FEN: IV fluids: saline lock, diet: carb controlled diet, then NPO after 0700, labs: CBC, C/BMP, liver enzymes, Mag, PT/INR, type and screen Consultants Dr. Butts, Orthopedic Surgery, care and involvement in the patient?s care is appreciated. Dispo: unknown at this time, may need rehab Code status: He states DNR/DNI discussed with the patient who identifies his ex-, Babs his surrogate and POA. X I have utilized all available immediate resources to obtain, update, or review of the patient's current medications COVID-19 COVID-19 status: Negative Result date/Date tested (Pos, Neg/Pending): 09/15/21 Time Spent With Patient Critical Care time: I spent a total of [] minutes of critical care time on this patient's care today; this time is exclusive of procedural time. Scores Wells' Criteria for PE Clinical signs and symptoms of DVT: No PE is #1 Dx or equally likely: No Heart rate > 100: No Immobilization at least 3 days or surg in previous 4 weeks: No History of PE or DVT: No Hemoptysis: No Malignancy w/Treatment within 6 months or palliative: Yes José Antonio' PE Score total: 1 Quality VTE Deep Vein Thrombosis/Pulmonary Embolism Present on Admission: No MIPS - Admit I confirm the patient?s Advance Care Plan is present, Code status is documented, Surrogate decision maker is in patient?s record [If Yes, STOP here]: Yes MIPS - DC The patient has current or prior documentation of left ventricular ejection fraction (LVEF) less than 40%, or moderate or severely depressed left ventricular systolic function.: No
[2021-09-15] MEDS: INSULIN LISPRO 100 UNIT/ML 3ML VIAL SUBCUT (23:17)
[2021-09-15 23:28] LABS: Troponin I 0.036 ng/mL (0.01-0.034)
[2021-09-16] VITALS (19 sets, daily range): BP systolic 121–164; BP diastolic 49–93; PULSE 61–90; RESP 11–18; TEMP 36.2–37.1; O2SAT 92–98; BMI 37.0
--- NOTE | 2021-09-16 | DI.RAD.S_ITS ---
PROCEDURE: XR FEMUR LT MIN 2V INDICATIONS: left femur fracture TECHNIQUE: 4 views of the femur were acquired. COMPARISON: [facility], CR, XR HIP W PEL IF DONE LT 2V, 09/15/2021, 15:01. [facility], CR, XR FEMUR LT MIN 2V, 09/16/2021, 18:34. FINDINGS: Bones: There are interval postsurgical changes status post ORIF of the previously visualized intertrochanteric fracture of the proximal left femur. There is improved alignment with a new intramedullary bryan, telescoping screws through the left femoral neck, and 2 distal interlocking screws in the distal femoral shaft. No new fractures. A left knee prosthesis is noted. Soft tissues: There are overlying postsurgical changes lateral to the left hip. IMPRESSION: 1. Improved alignment and postsurgical changes status post ORIF of left intertrochanteric femoral fracture. Dictated by: Ephraim Navarrete M.D. on 09/16/2021 at 21:46 Approved by: Ephraim Navarrete M.D. on 09/16/2021 at 21:49
--- NOTE | 2021-09-16 | DI.RAD.S_ITS ---
PROCEDURE: XR FEMUR LT MIN 2V INDICATIONS: post op TECHNIQUE: Multiple intraoperative views of the femur were acquired. COMPARISON: [facility], CR, XR HIP W PEL IF DONE LT 2V, 09/15/2021, 15:01. [facility], CR, XR FEMUR LT MIN 2V, 09/16/2021, 20:29. FINDINGS: Multiple intraoperative fluoroscopic views of the left femur demonstrate open reduction and internal fixation of the previously visualized intertrochanteric fracture with placement of an intramedullary bryan, telescoping screws through the left femoral neck, and fixation screws within the distal femoral shaft. A knee prosthesis is partially visualized. IMPRESSION: 1. Intraoperative images demonstrate ORIF of previously described intertrochanteric fracture of the proximal left femur. Dictated by: Ephraim Navarrete M.D. on 09/16/2021 at 21:40 Approved by: Ephraim Navarrete M.D. on 09/16/2021 at 21:42
[2021-09-16] MEDS: NICOTINE 14 PATCH 14 MG TOP ×2 (01:37→07:57)
[2021-09-16] MEDS: MORPHINE 4 MG/ML INJ IV ×2 (05:34→14:54)
[2021-09-16 06:16] LABS: Add Manual Diff / Slide Review NO; Basophils Absolute Auto 100 /uL (0-100); Basophils Percent Auto 0.8 % (0-2); Eosinophils Absolute Auto 100 /uL (0-450); Eosinophils Percent Auto 1.9 % (2-4); Hematocrit 40.4 % (41-53); Hemoglobin 13.7 g/dL (13.5-17.5); Lymphocytes Absolute Auto 1600 /uL (1100-4500); Lymphocytes Percent Auto 22.4 % (25-40); Mean Corpuscular Volume 91.1 fL (80-100); Monocytes Absolute Auto 700 /uL (0-900); Monocytes Percent Auto 9.8 % (3-14); Neutrophils Absolute Auto 4600 /uL (1500-7000); Neutrophils Percent Auto 65.1 % (50-75); Platelet Count 106 X10^3/uL (150-400); Red Blood Cell Count 4.43 X10^6/uL (4.5-5.9); Red Cell Distribution Width 14.3 % (11.6-14.8); White Blood Cell Count 7.1 X10^3/uL (4.5-11.0)
[2021-09-16 06:24] LABS: Alanine Aminotransferase 16 IU/L (<50); Albumin 3.2 g/dL (3.5-5.0); Albumin Globulin Ratio 1.3 (1.0-2.8); Alkaline Phosphatase 57 U/L (38-126); Aspartate Aminotransferase 20 IU/L (17-59); Bilirubin Total 0.8 mg/dL (0.2-1.3); Bilirubin Unconjugated 0.7 mg/dL (0.0-1.1); Globulin 2.5 g/dL (1.7-4.1); HEMOLYSIS < 15 (0-50); Total Protein 5.7 g/dL (6.3-8.2)
[2021-09-16 06:25] LABS: Cholesterol 135 mg/dL (140-199); HDL Cholesterol 30 mg/dL (40-60); LDL Cholesterol Calculated 72 mg/dL (<100); Triglycerides 165 mg/dL (35-150)
[2021-09-16 06:26] LABS: BUN Creatinine Ratio 16.4 (6-22); Blood Urea Nitrogen 19 mg/dL (9-20); Calcium 7.8 mg/dL (8.4-10.2); Carbon Dioxide 30 mmol/L (22-32); Chloride 107 mmol/L (98-107); Estimated Glomerular Filt Rate > 60 mL/min (>60); Glucose 152 mg/dL (80-110); HEMOLYSIS < 15 (0-50); Magnesium 1.7 mg/dL (1.6-2.3); Potassium 3.3 mmol/L (3.4-5.1); Sodium 141 mmol/L (137-145)
[2021-09-16 06:54] LABS: TSH w/ Reflex to FT4 2.09 uIU/mL (0.47-4.68)
[2021-09-16] MEDS: LOPERAMIDE 2 MG CAPSULE PO (07:50)
[2021-09-16] MEDS: HYDROMORPHONE 0.5 MG INJ 1 MG IV ×2 (07:58→12:09)
[2021-09-16] MEDS: CHOLECALCIFEROL (VITAMIN D3) 5,000 UNIT TABLET 5000 UNIT PO (08:10)
[2021-09-16] MEDS: INSULIN LISPRO 100 UNIT/ML 3ML VIAL SUBCUT (08:47)
[2021-09-16] MEDS: MAGNESIUM SULFATE 2 GM/50 ML PIGGYBACK IV (08:50)
--- NOTE | 2021-09-16 09:03 | CM.DANOTE ---
Addendum entered by Ai Rizvi R.N. 09/16/21 15:15: Called [facility] and spoke to Le in admissions. She indicated that they may have openings on Sunday, due to staffing, can't accept any patients this week-end. Patient is having surgery today, and most likely will not work with therapy until tomorrow, which is what Roger would need. They also do not typically authorize on the week-ends. Also, spoke to Lisa at [facility], since both of these facilities accept [employer], [facility]. Lisa also indicated that they may have beds on Sunday. Went ahead and faxed over the referral, which included face sheet, ER report, H&P, surgical consult. As previously stated, patient will have surgery this afternoon, and most likely will not work with P.T. until tomorrow. Addendum entered by Ai Rizvi R.N. 09/16/21 10:26: Clerical Aide Teacher, Ysabel, had received a call from patient's insurance, Roger, skilled nursing case manager, August. August had wanted to know the status of patient, if he would be having surgery. Had Ysabel let her know that surgery is at 1400 today, and that patient may need usp. Asked Ysabel to get her contact number, since auth will be needed for usp, and can pass on to facility. Her phone number is: [phone], ext: [phone]. Original Note: DCP: Case received, EMR reviewed and met with patient. Introduced self and role. Was able to obtain information regarding patient's baseline activity status prior to hospitalization. DCP assessment completed with information currently available. Patient is a 70 year old male who admitted yesterday afternoon to the care of the hospitalist team. PCP: Unknown at this time, patient indicated that he used to have primary care provider in [place]. Payer: confirmed: [employer]. Patient came to the hospital via ambulance secondary to a ground level fall. According to notes, patient was attempting to put a litzy on his car, he is traveling up here from [place], was getting ready for an RV trip. He could not open the car, crawled out of the trackless trolley driver's side window and fell, and fractured his hip. Patient holds diagnosis of left proximal femur fracture and is scheduled for surgery at 1400. Met with patient in his room. He is alert and oriented. Confirmed that he is from [place], he and his , Babs, are , but are still friends. He is retired from [employer]. He is independent at his ambulation, he indicated that every year he goes to [place], he just came from there, camping. He also has family there, and indicated that his primary care provider was there, but didn't like her. He had come up to this area to see his sister, Saba, who is about 5 years older. He stated, she's not in the best health, but she is letting me use her RV. Patient stated, [place], he [place]. As this skilled nursing case manager was talking to patient, his phone was ringing, left the room. Patient is scheduled for surgery at 1400 today. He may need skilled rehab, did not yet discuss with him. He does have [employer]age, and [facility] and [facility] do accept insurance, but uncertain if they have beds, and auth will need to be obtained, and he will need to work with P.T. first. May send referrals to both. P: DCP to continue to follow. Patient may need usp. Will follow up with both facilities regarding bed availability. Ai Rizvi RN/Caustic Loader Discharge Planning/Care Management CM Discharge Assessment Start: 09/16/21 09:01 Freq: Status: Active Protocol: Document 09/16/21 09:01 (Rec: 09/16/21 09:03 [id number]) Discharge Planning Assessment Assigned Junior Oracle Dba Ai Rizvi RN/Caustic Loader Advance Directives? Yes Advance Directives on File No History Provided By Patient,Medical Record Prior Living Arrangements RV Household Members spouse Type of transporation used prior to Drives own vehicle admit Independent with ADL's Yes Is patient alert and oriented? Yes Caregiver for Another No Barriers to Discharge Yes Comment Patient may need usp, he is not from this area, secondary to fall Discharge Plan [facility]dc Facility Transportation Arrangement Facility, if he goes to skilled rehab. Referrals Initiated Other Additional Comment Have not yet sent referral. Whiteboard Updated in Patient Room with Yes name and ext. # of Junior Oracle Dba Review Status In Process Next Review Type Continued Stay Review Discharge Planning/Care Management CM Discharge Assessment Start: 09/16/21 09:01 Freq: Status: Active Protocol: Document 09/16/21 09:01 (Rec: 09/16/21 09:03 [id number]) Discharge Planning Assessment Assigned Junior Oracle Dba Ai Rizvi RN/Caustic Loader Advance Directives? Yes Advance Directives on File No History Provided By Patient,Medical Record Prior Living Arrangements RV Household Members spouse Type of transporation used prior to Drives own vehicle admit Independent with ADL's Yes Is patient alert and oriented? Yes Caregiver for Another No Barriers to Discharge Yes Comment Patient may need usp, he is not from this area, secondary to fall Discharge Plan [facility]dc Facility Transportation Arrangement Facility, if he goes to skilled rehab. Referrals Initiated Other Additional Comment Have not yet sent referral. Whiteboard Updated in Patient Room with Yes name and ext. # of Junior Oracle Dba Review Status In Process Next Review Type Continued Stay Review
[2021-09-16] MEDS: POTASSIUM CHLORIDE IN WATER 10 MEQ/100 ML PIGGYBACK 100 MEQ IV ×4 (09:37→13:18)
[2021-09-16 13:13] LABS: COVID19 -Nasal RAPID Negative (Negative)
--- NOTE | 2021-09-16 15:39 | PM.PREOP ---
Pre-operative Note COVID-19 COVID-19 status: Negative Interval Note History & Physical reviewed/Exam performed by Physician: Yes Changes to H&P: No
[2021-09-16] MEDS: ALBUTEROL/IPRATROPIUM 3 ML AMPUL INH (17:05)
[2021-09-16] MEDS: LACTATED RINGERS 1,000 ML 84 ML IV ×2 (17:06→19:48)
[2021-09-16] MEDS: CEFAZOLIN 2 GM/20 ML SYRINGE IV (18:35)
--- NOTE | 2021-09-16 18:43 | PC.NURSE ---
Pt is AxOx4, VSS, c/o pain on L hip area and recieved PRN Dilaudid 1mg few times and Morphine 4mg once. Pt was NPO since 7 am and scheduled to have surgery at 2 pm. However, surgery was delayed 2.5 hrs so pt went OR around 16:45. BG-159/109/115. Cline is draining tacos color urine. Pt's was low so pt recieved IV potassium 4 bags. No other changes.
--- NOTE | 2021-09-16 18:44 | SUR.OPER ---
Supine on padded [place] table with bilateral legs secured in padded positioning boots and suspended in positioning spars, operative leg in traction per surgeon. Head on one pillow. Arm on non-operative side secured on padded armboard <90 degrees abduction. Arm on operative side padded and resting across chest then secured with tape over sheet. Padded perineal post in place per surgeon.
[2021-09-16] MEDS: BUPIVACAINE 0.25% (PF) 30 ML, EPINEPHrine 0.15 MG INJ (18:50)
[2021-09-16] MEDS: TRANEXAMIC ACID 1,000 MG in SODIUM CHLORIDE 0.9% 100 ML 200 ML IV (19:47)
[2021-09-16] MEDS: ALBUTEROL 2.5 MG/3 ML NEB (ADULT) INH (20:15)
[2021-09-16] MEDS: fentaNYL 100 MCG/2 ML INJ 50 MCG IV (20:20)
--- NOTE | 2021-09-16 20:41 | P.OP_ITS ---
Operative Date/Time/Diagnoses Date of procedure: 09/16/21 Time of procedure: 18:30 Pre-op diagnosis: Left proximal femur fracture pertrochanteric, osteoporotic Obesity Vitamin-D deficiency Post-op diagnosis: same Procedure & Clinicians Procedure: Fixation left proximal femur fracture with intramedullary bryan CPT code 23476 During the operation, the services of a physician director surgical were medically indicated and necessary to provide the exposure of the operative site for the surgical procedure and to maintain the limb in a proper position to carry out the operation safely and efficiently. Without a qualified trust administrative assistant being present this would extended the operative procedure and made the procedure technically more difficult to perform. Same procedure as scheduled: Yes Indications: The patient sustained a left hip fracture and was indicated for operative fixation. The risks, benefits, and alternatives of procedure were discussed at length with the patient, and they expressed understanding. These included bleeding, infection, damage to nerves, pain, malunion, nonunion, blood clots, pulmonary embolism and cardiovascular risks associated with general anesthesia. Consent was signed. Additionally the patient was counseled on tobacco cessation and its ill affects on bone and soft tissue healing. The patient was tested for vitamin-D and was found to be vitamin-D deficient. He sustained a osteoporotic fracture this is a fragility fracture. Recommend treatment for his vitamin-D deficiency an outpatient bone metabolic workup and follow-up. Surgeon: Rose Marie Butts Asphalt Distributor Operator: Mónica Taylor Anesthesia Type: General and Local Operative Notes Findings: Comminuted proximal femur fracture intertrochanteric with reverse obliquity component violation of lateral wall unstable fracture Closure Type: primary Specimen(s): none sent Prosthetic devices, grafts, tissues, transplants, or devices: Phan and nephew inter de jesus intramedullary nail 34 cm x 11.5 mm lag screw and interlocking compression screw 105/100 2x 5.0 distal interlocking screws Estimated Blood Loss (mL): 150 Blood products transfused: none Tourniquet time (min): 0 Procedure in detail: Hip fracture intramedullary nailing cpt 26893 The patient was seen, and site of surgery marked in the preoperative area. This was the left hip. The patient was then brought to the operating room and placed on the operative table and general anesthesia administered. The patient was positioned on the fracture table in the standard fashion with a well-padded boots and a padded peroneal post. An SCD was on the contralateral leg. A formal time-out was called to confirm the patient's side and site of surgery, administration of preoperative antibiotics. All personnel agreed. 1 g of TXA was administered to reduce blood loss The operative leg was then gently manipulated under fluoroscopic guidance to obtain a closed reduction near anatomic alignment. At this point, the operative extremity was prepped and draped in the standard sterile manner. A guidewire was placed percutaneously, and the starting point obtained. A small incision was made over the guidewire. An opening drill was inserted to the level of lesser trochanter. The ball-tip guidewire was then passed and confirmed to be within the canal distally on the biplanar fluoroscopic imaging. The wire was then measured the nail length selected. The canal was then sequentially reamed, and over-reamed by 1.5 for 11.5 x 34 nail. Due to the patient's fracture pattern and body habitus use of an trust administrative assistant was integral in the positioning and facilitation of reduction and instrumentation of this fracture. The nail was then advanced to the proper depth and rotation the guide for the cephalomedullary screws was inserted. An incision was made for this and the guide placed to the bone. A guidewire was placed to the proper depth and confirmed on AP and lateral imaging. The tip apex distance was evaluated and appropriate. Next the outer cortex was drilled for the interlocking screw and the anti rotation bar was placed. The cephalomedullary screw length was measured off the drill. A 105mm lag screw was selected in the corresponding interlocking compression screw. The guidewire was then overdrilled and a lag screw placed. The anti rotation bar was removed and then our locking compression screws placed and confirmed on biplanar fluoroscopy. The integrated compression screw was tightened. Traction was released and attention turned to the distal interlock screws, these was placed in the standard perfect [place] technique. Fluoro AP and lateral images were captured in the OR confirming alignment and hardware placement. Wounds were irrigated and closed in layers with 2- 0 Vicryl in the deep fascia, 2-0 in the subcutaneous layer and jared for skin closure. 0.5% Marcaine was injected at the incision sites for local anesthesia. Sterile dressings were applied. There no immediate complications noted. The surgical counts were correct. The patient tolerated the procedure well and was taken to the recovery room. Complications: none Post-operative Condition: stable Disposition: PACU Plan for aftercare: Weightbear as tolerated left lower extremity. Lovenox for DVT prophylaxis times 28 days. Calcium and vitamin-D for bone health. Additionally this patient is vitamin-D deficient recommend treatment and retest Vitamin-D in 2 months to assess for correction. Recommend outpatient osteoporosis treatment given the osteoporotic fracture and presence of vitamin-D deficiency. Patient has jared that will be removed in 10-14 days. Can follow up 10-14 days with [facility]
[2021-09-16] MEDS: ONDANSETRON 4 MG/2 ML INJ IV (20:47)
[2021-09-16] MEDS: OXYCODONE IR 5 MG TABLET PO (20:47)
[2021-09-16] MEDS: TRAZODONE 50 MG TABLET PO (22:40)
[2021-09-16] MEDS: HYDROMORPHONE 0.5 MG INJ IV (22:41)
[2021-09-16] MEDS: DOCUSATE 100 MG CAPSULE PO (22:41)
[2021-09-16] MEDS: LACTATED RINGERS 1,000 ML 100 ML IV (22:41)
[2021-09-16] MEDS: ACETAMINOPHEN 325 MG TABLET 975 MG PO (22:47)
[2021-09-17] VITALS (11 sets, daily range): BP systolic 124–146; BP diastolic 61–88; PULSE 76–93; RESP 16–18; TEMP 36–37.3; O2SAT 91–100
[2021-09-17] MEDS: OXYCODONE IR 10 MG TABLET PO ×6 (00:14→20:27)
[2021-09-17] MEDS: CEFAZOLIN 2 GM/20 ML SYRINGE IV ×2 (02:17→09:09)
[2021-09-17] MEDS: clonazePAM 0.5 MG TABLET PO ×2 (04:30→20:27)
[2021-09-17] MEDS: LACTATED RINGERS 1,000 ML 100 ML IV (05:34)
[2021-09-17] MEDS: LOPERAMIDE 2 MG CAPSULE 6 MG PO (05:58)
--- NOTE | 2021-09-17 07:55 | PM.PNPO.1 ---
Subjective Subjective Date Patient Seen: 09/17/21 Time Patient Seen: 09:03 Interval history: Lying in bed comfortably, on the phone throughout my visit. Exam Vital Signs (past 8 hours): - 09/17/21 02:00 09/17/21 04:26 09/17/21 06:00 Temperature 97.0 F L 97.0 F L Pulse Rate 77 76 Respiratory Rate 16 16 Blood Pressure 142/70 H 124/61 Pulse Oximetry 96 99 100 09/17/21 07:14 Temperature Pulse Rate Respiratory Rate Blood Pressure Pulse Oximetry 94 Oxygen Delivery Method Nasal Cannula Oxygen Flow Rate 1 Narrative Exam Narrative: Hesistant w/ hip flexion, quadriceps, hamstrings on left; 5/5 DF, PF, EHL. Sensation to light touch intact throughout BLE. Calves soft, compressible, nontender and without palpable cords or masses. Objective Labs Result Diagrams: 09/17/21 08:15 09/17/21 08:15 Labs: Laboratory Results - last 24 hr 09/16/21 09/16/21 05:40 10:09 SARS-CoV-2 (PCR) Negative Blood Type O Negative Antibody Screen Negative [facility] Medical History Anxiety disorder Diabetes type 2, uncontrolled Morbid obesity with BMI of 40.0-44.9, adult Surgical History Hx of cholecystectomy Family History Mother Status cardiac pacemaker Father Fall down stairs Son Leukemia Social History details: Lives in [place]. Was up to by an RV and was about to drive home household members: spouse Smoking Status: Current every day smoker alcohol intake: current Assessment & Plan Post-op Assessment and plan (1) Status post hip surgery: Assessment and Plan narrative: PT; weightbear as tolerated left lower extremity.? Lovenox for DVT prophylaxis starting today, continue through October 14, 2021.? Calcium and vitamin-D for bone health.? Additionally this patient is vitamin-D deficient recommend treatment and retest Vitamin-D in 2 months to assess for correction.? Recommend outpatient osteoporosis treatment given the osteoporotic fracture and presence of vitamin-D deficiency.? Patient has jared that will be removed between September 26 and w/ PA at [facility]. Postoperative Procedures: Procedures Operation Date: 09/16/21 16:30 Actual Procedure Side Surgeon p Intramedullary Nailing Femur Left Rose Marie Butts MD Postoperative day: 1 Quality VTE Deep Vein Thrombosis/Pulmonary Embolism Present on Admission: No
[2021-09-17 08:31] LABS: Add Manual Diff / Slide Review NO; Basophils Absolute Auto 100 /uL (0-100); Basophils Percent Auto 1.2 % (0-2); Eosinophils Absolute Auto 100 /uL (0-450); Eosinophils Percent Auto 1.6 % (2-4); Hematocrit 33.5 % (41-53); Hemoglobin 11.3 g/dL (13.5-17.5); Lymphocytes Absolute Auto 1200 /uL (1100-4500); Lymphocytes Percent Auto 16.4 % (25-40); Mean Corpuscular HGB Conc 33.7 % (30-36); Mean Corpuscular Hemoglobin 30.8 PG (26-34); Mean Corpuscular Volume 91.6 fL (80-100); Monocytes Absolute Auto 800 /uL (0-900); Monocytes Percent Auto 10.3 % (3-14); Neutrophils Absolute Auto 5400 /uL (1500-7000); Neutrophils Percent Auto 70.5 % (50-75); Platelet Count 92 X10^3/uL (150-400); Red Blood Cell Count 3.65 X10^6/uL (4.5-5.9); Red Cell Distribution Width 14.2 % (11.6-14.8); White Blood Cell Count 7.6 X10^3/uL (4.5-11.0)
[2021-09-17 08:42] LABS: Alanine Aminotransferase 38 IU/L (<50); Albumin 2.9 g/dL (3.5-5.0); Albumin Globulin Ratio 1.3 (1.0-2.8); Alkaline Phosphatase 77 U/L (38-126); Aspartate Aminotransferase 45 IU/L (17-59); Bilirubin Total 0.5 mg/dL (0.2-1.3); Bilirubin Unconjugated 0.5 mg/dL (0.0-1.1); Globulin 2.3 g/dL (1.7-4.1); HEMOLYSIS 26 (0-50); Total Protein 5.2 g/dL (6.3-8.2)
[2021-09-17] MEDS: ENOXAPARIN 40 MG/0.4 ML SYRINGE SUBCUT (08:42)
[2021-09-17] MEDS: CHOLECALCIFEROL (VITAMIN D3) 5,000 UNIT TABLET 5000 UNIT PO (08:42)
[2021-09-17] MEDS: DOCUSATE 100 MG CAPSULE PO (08:42)
[2021-09-17] MEDS: NICOTINE 14 PATCH 14 MG TOP (08:44)
[2021-09-17 08:51] LABS: BUN Creatinine Ratio 14.2 (6-22); Blood Urea Nitrogen 15 mg/dL (9-20); Calcium 7.4 mg/dL (8.4-10.2); Carbon Dioxide 32 mmol/L (22-32); Chloride 106 mmol/L (98-107); Estimated Glomerular Filt Rate > 60 mL/min (>60); Glucose 167 mg/dL (80-110); HEMOLYSIS 26 (0-50); Magnesium 1.8 mg/dL (1.6-2.3); Potassium 3.8 mmol/L (3.4-5.1); Sodium 137 mmol/L (137-145)
[2021-09-17] MEDS: INSULIN LISPRO 100 UNIT/ML 3ML VIAL SUBCUT ×3 (08:53→17:50)
[2021-09-17] MEDS: ACETAMINOPHEN 325 MG TABLET 975 MG PO (08:56)
--- NOTE | 2021-09-17 11:05 | PT.IIE ---
Current Diagnoses Fracture of unspecified part of neck of unspecified femur, initial encounter for closed fracture (09/15/21) Other specified postprocedural states (09/15/21) Surgery Performed Operation Date: 09/16/21 16:30 Actual Procedures p Intramedullary Nailing Femur(Left) - Rose Marie Butts MD Medical History (Last Reviewed 09/16/21 @ 07:07 by Rose Marie Butts MD) Anxiety disorder Diabetes type 2, uncontrolled Morbid obesity with BMI of 40.0-44.9, adult Physical Therapy Inpatient Evaluation/Re-Eval M1 PT/OT-IP Prior Functional Status Start: 09/17/21 12:12 Freq: NEEDED Status: Active Protocol: Document 09/17/21 11:05 AB (Rec: 09/17/21 12:23 AB [email or web address]) Medical Review Prior Functional Status Medical History Reviewed Yes Communication able to make needs known Mobility and Gait pt stated that he is independent with all mobilities and ambulation without AD Prior Functional Level (Other details) pt stated that he lived in [place] but now here in [place] to get his motor home that he bought from his sister and will be living in his motor home for now. Social History Household Members none Living Arrangements RV Number of Floors (Floors) One Floor Number of Stairs To Enter/Railing? 4 steps B rails to enter Home Environment Standard Height Toilet,Walk in Shower Home Equipment Grab Bars Near Toilet,Grab Bars In Shower M2 PT-IP Current Condition Start: 09/17/21 12:12 Freq: NEEDED Status: Active Protocol: Document 09/17/21 11:05 AB (Rec: 09/17/21 12:23 AB [email or web address]) Physical Therapy Current Condition Current Condition Evaluation Date 09/17/21 Treatment Diagnosis L hip fx s/p IM nailing; difficulty in walking Onset Date 09/15/21 M3 PT-IP Subjective Start: 09/17/21 12:12 Freq: NEEDED Status: Active Protocol: Document 09/17/21 11:05 AB (Rec: 09/17/21 12:23 AB [email or web address]) Subjective Physical Therapy Visit Type Type Initial Evaluation Visit Start Time 11:05 Visit Stop Time 12:00 Total Visit Minutes 55 Number of ELEMENTARY SCHOOL READING TEACHER Visits 0 Physical Therapy Visit Comments Patient Comments agreeable to do PT Therapy Pain Assessment Pain When Pain Assessed At Rest Pain Present Pain Present Pain Reported Location left hip Intensity 8 Scale Used Numeric (0 - 10) Pain Management Techniques Apply Cold,Distraction, Modification of Treatment,Re- positioning,Timing of Activity with Medications M4 PT-IP Mobility and Gait Start: 09/17/21 12:12 Freq: NEEDED Status: Active Protocol: Document 09/17/21 11:05 AB (Rec: 09/17/21 12:23 AB [id number]) PT-Bed Mobility Assessment Supine to Sit Supine to Sit Maximum Assistance,2 Person Assistance Scooting Scooting to Edge of Bed Maximum Assistance PT-Transfer Assessment Sit to and From Stand Sit to and from Stand Maximum Assistance,2 Person Assistance,Use of Upper Extremities Equipment Transfer Assistive Device Gait Belt,Front Wheeled Walker Orthotic/Prosthetic Devices or Brace: No Transfers Transfer Destination Chair Transfer Ability Level of Assist Total Assistance,2 Person Assistance,Use of Upper Extremities Comments Mobility Comments completed supine to sit max A x 2 and max cues with HOB elevated and pt used bed rail to assist. min to mod A for sitting balance with (+)LOB during reaching to the R. completed sit to stand max A x 2 and max cues for steadiness and upright posture. (+) L knee buckling requiring max A to stabilize. Attempted step transfer using FWW to the chair x 3 attempts but pt unable to complete despite max A x 2 provided. Assisted pt with squat pivot transfer total A x 2 and max cues. total A for positioning on the chair. call light and table placed within reach. Gait Assessment Comments Gait Comments unable at this time PT-Balance Assessment Sitting Balance and Reactions Static Sitting Balance Ability Fair Dynamic Sitting Balance Ability Poor Standing Balance and Reactions Static Standing Balance Ability Poor Dynamic Standing Balance Ability Poor Device Used FWW M5 PT-IP Objective Assessments Start: 09/17/21 12:12 Freq: NEEDED Status: Active Protocol: Document 09/17/21 11:05 AB (Rec: 09/17/21 12:23 AB [email or web address]) Orientation Orientation/Cognition Level of Alertness Alert Orientation Name,Place,Situation Safety Awareness Decreased Safety Awareness Memory Description Short Term Impaired Gross Range of Motion Lower Extremity ROM Assessment Left Impaired Impairments LLE tightness Strength Lower Extremity Strength Assessment Bilaterally Impaired Comments Strength Comments RLE: 4-/5 LLE: 3-/5 Sensation Assessment Sensation Gross Sensation WNL Muscle Tone Muscle Tone WNL Yes M6 PT-IP Treatment Start: 09/17/21 12:12 Freq: NEEDED Status: Active Protocol: Document 09/17/21 11:05 AB (Rec: 09/17/21 12:23 AB [id number]) Physical Therapy Treatment Exercises Exercises Ankle Pumps,Quad Sets,Heel Slides Education Education Provided Precautions,Weight Bearing Status,Post-Op Packet,Safety M7 PT-IP Assessment and Plan Start: 09/17/21 12:12 Freq: NEEDED Status: Active Protocol: Document 09/17/21 11:05 AB (Rec: 09/17/21 12:23 AB [email or web address]) PT Summary Assessment and Plan Potential Rehabilitation Potential Fair Status of Condition at Evaluation Evolving Summary Impairments Pain,ROM,Strength,Balance, Coordination,Sensation,Tone, Cognition,Bed Mobility, Transfers,Gait,Activity Tolerance Assessment Summary pt requiring max A x 2 to total A x 2 with mobility and unable to ambulate at this time. pt will require SNF rehab to improve strength and mobility. Goals Bed Mobility Goal Minimal Assistance Transfer Goal Minimal Assistance,Front Wheeled Walker Gait Goal Minimal Assistance,Front Wheel Walker Gait Distance 50 Other Goals improve bed mobility, transfers using FWW SBA improve ambulation using FWW 100 ft CGA Days to Meet Goals 10 Frequency of Treatment Frequency Of Treatment Twice a Day Treatment Plan Physical Therapy Treatment Plan Bed Mobility Training,Transfer Training,Gait Training, Therapeutic Exercise,Balance Retraining,Post Op Education, Discharge Planning,Hot or Cold Pack,Neuromuscular Re-ed, Coordination Retraining,Manual Therapy Weight Bearing Status Weight Bearing Status Weight Bear as Tolerated Allowed Weight Bearing Amount (enter % LLE WBAT or #) (%) Recommendations To Nursing Amount of Assist Needed Mechanical Lift Discharge Recommendations PT Discharge Recommendations SNF Rehab Transportation Needs at Discharge Wheelchair/Cabulance
--- NOTE | 2021-09-17 11:13 | CM.DPC ---
Addendum entered by Ai Rizvi R.N. 09/17/21 15:17: Called [facility] admissions and spoke to Garret, she is in for Lisa. Asked her if patient would be accepted at their facility, as patient most likely would be ready Sunday, with the understanding that [employer] auth would have to be completed. Garret indicated that Lisa has it on her desk, and to follow up with her on Sunday. Called Le at [facility] in admissions, and left her the same message, asking if she can accept, as initial referral was sent yesterday, and therapy notes in today. In the message also indicated that patient would likely be ready for discharge by Sunday, but pending auth from [employer], and wanted to be sure that they can accept. Addendum entered by Ai Rizvi R.N. 09/17/21 15:11: Faxed [facility] and [facility] 2nd P.T. note from today so auth can be submitted to [employer] Addendum entered by Ai Rizvi R.N. 09/17/21 12:31: P.T. notes are completed, indicating two person max assist. Faxed over P.T. note to [facility] and [facility], for they will need P.T. notes to submit auth to [employer]. Original Note: KAREN Cont: Met with patient in his room. He had his hip surgery last pm. He is alert and oriented. Gave him a Medicare Choice List, and explained to him that if he does need rehab for a short amount of time, there are two facilities that accept his insurance. He is hoping that he will be strong enough to go home, explained to him that this is an alternate plan, since he is traveling, and was planning on going back to his at [place], and to [place]. Confirmed that his sister and spouse live on [facility], but she has her own problems, he would not be staying with her. Patient did ask that if he needs rehab, how he would get there. Explained to him that they would provide transportation. P: DCP to continue to follow. He will be working with P.T. today. Have referrals sent to [facility] and [facility], since they both accept [employer]vantage, but would not have beds and auth until Sunday. Ai Rizvi RN/Student Outreach Coordinator
[2021-09-17] MEDS: OXYCODONE IR 5 MG TABLET PO (14:04)
--- NOTE | 2021-09-17 14:05 | PT.IPTN ---
Current Diagnoses Fracture of unspecified part of neck of unspecified femur, initial encounter for closed fracture (09/15/21) Other specified postprocedural states (09/15/21) Surgery Performed Operation Date: 09/16/21 16:30 Actual Procedures p Intramedullary Nailing Femur(Left) - Rose Marie Butts MD Physical Therapy Treatment Note M2 PT-IP Current Condition Start: 09/17/21 12:12 Freq: NEEDED Status: Active Protocol: Document 09/17/21 11:05 AB (Rec: 09/17/21 12:23 AB [email or web address]) Physical Therapy Current Condition Current Condition Evaluation Date 09/17/21 Treatment Diagnosis L hip fx s/p IM nailing; difficulty in walking Onset Date 09/15/21 M3 PT-IP Subjective Start: 09/17/21 12:12 Freq: NEEDED Status: Active Protocol: Document 09/17/21 14:05 AB (Rec: 09/17/21 14:56 AB [email or web address]) Subjective Physical Therapy Visit Type Type Treatment Note Visit Start Time 14:05 Visit Stop Time 14:32 Total Visit Minutes 27 Number of COMMERCIAL FINANCE MANAGER Visits 0 Physical Therapy Visit Comments Patient Comments agreeable to do PT Therapy Pain Assessment Pain When Pain Assessed At Rest Pain Present Pain Present Pain Reported Location left hip Scale Used Numeric (0 - 10) Pain Management Techniques Apply Cold,Distraction, Modification of Treatment,Re- positioning,Timing of Activity with Medications M4 PT-IP Mobility and Gait Start: 09/17/21 12:12 Freq: NEEDED Status: Active Protocol: Document 09/17/21 14:05 AB (Rec: 09/17/21 14:56 AB [email or web address]) PT-Bed Mobility Assessment Sit to Supine Sit to Supine Maximum Assistance,2 Person Assistance,Bedrails Scooting Scooting Up and Down in Bed Maximum Assistance PT-Transfer Assessment Sit to and From Stand Sit to and from Stand Maximum Assistance,2 Person Assistance,Use of Upper Extremities Equipment Transfer Assistive Device Gait Belt,Front Wheeled Walker Orthotic/Prosthetic Devices or Brace: No Transfers Transfer Destination Bed Transfer Technique Stand Pivot Transfer Ability Level of Assist Maximum Assistance,Total Assistance,2 Person Assistance ,Use of Upper Extremities Comments Mobility Comments completed seated LAQ's with 5 sec hold and glute sets. completed sit to stand x 2 attempts max A x 2 and max cues. continues to have L knee buckling. completed stand pivot using FWW max A x 2 and max cues but total A x 2 towards end of transfer due to pt's fatigue and unable to move LE and stand upright. completed sit to supine max Ax 2 and max cues. positioned pt in bed. call light and table placed within reach. Gait Assessment Comments Gait Comments unable M5 PT-IP Objective Assessments Start: 09/17/21 12:12 Freq: NEEDED Status: Active Protocol: Document 09/17/21 11:05 AB (Rec: 09/17/21 12:23 AB [email or web address]) Orientation Orientation/Cognition Level of Alertness Alert Orientation Name,Place,Situation Safety Awareness Decreased Safety Awareness Memory Description Short Term Impaired Gross Range of Motion Lower Extremity ROM Assessment Left Impaired Impairments LLE tightness Strength Lower Extremity Strength Assessment Bilaterally Impaired Comments Strength Comments RLE: 4-/5 LLE: 3-/5 Sensation Assessment Sensation Gross Sensation WNL Muscle Tone Muscle Tone WNL Yes M6 PT-IP Treatment Start: 09/17/21 12:12 Freq: NEEDED Status: Active Protocol: Document 09/17/21 14:05 AB (Rec: 09/17/21 14:56 [email or web address]) Physical Therapy Treatment Exercises Exercises Gluteal Sets,Seated Knee Flexion/Extension Education Education Provided Safety M7 PT-IP Assessment and Plan Start: 09/17/21 12:12 Freq: NEEDED Status: Active Protocol: Document 09/17/21 14:05 AB (Rec: 09/17/21 14:56 [email or web address]) PT Summary Assessment and Plan Potential Rehabilitation Potential Fair Summary Impairments Pain,ROM,Strength,Balance, Coordination,Sensation,Tone, Cognition,Bed Mobility, Transfers,Gait,Activity Tolerance Progress Towards Goals Slow Progress due to Pain,Slow Progress due to Medical Issues,Slow Progress due to Activity Tolerance Assessment Summary pt continues to require max A x 2 to total A x 2 with mobility and unable to ambulate. pt will require SNF rehab. Goals Bed Mobility Goal Minimal Assistance Transfer Goal Minimal Assistance,Front Wheeled Walker Gait Goal Minimal Assistance,Front Wheel Walker Gait Distance 50 Other Goals improve bed mobility, transfers using FWW SBA improve ambulation using FWW 100 ft CGA Days to Meet Goals 10 Frequency of Treatment Frequency Of Treatment Twice a Day Treatment Plan Physical Therapy Treatment Plan Bed Mobility Training,Transfer Training,Gait Training, Therapeutic Exercise,Balance Retraining,Post Op Education, Discharge Planning,Hot or Cold Pack,Neuromuscular Re-ed, Coordination Retraining,Manual Therapy Weight Bearing Status Weight Bearing Status Weight Bear as Tolerated Allowed Weight Bearing Amount (enter % LLE WBAT or #) (%) Recommendations To Nursing Amount of Assist Needed Mechanical Lift Discharge Recommendations PT Discharge Recommendations SNF Rehab Transportation Needs at Discharge Wheelchair/Cabulance
--- NOTE | 2021-09-17 16:31 | P.PN_ITS ---
Subjective Subjective Date Patient Seen: 09/17/21 Interval history: 70-year-old male status post left femur ORIF. Patient is up in chair with PT help. Exam Vital Signs (past 8 hours): - 09/17/21 11:08 09/17/21 13:27 Temperature 97.8 F 97.3 F L Pulse Rate 86 86 Respiratory Rate 18 16 Blood Pressure 145/88 H 146/79 H Pulse Oximetry 95 94 Oxygen Delivery Method Nasal Cannula Oxygen Flow Rate 1 Narrative Exam Narrative: General: Alert, NAD Lungs: Clear Extremities: Left hip dressing clean and dry no distal swelling Neurological: Non confused, normal affect and speech Objective Labs Result Diagrams: 09/17/21 08:15 09/17/21 08:15 Labs: Laboratory Results - last 24 hr 09/17/21 09/17/21 09/17/21 08:15 08:15 08:15 WBC 7.6 RBC 3.65 L Hgb 11.3 L Hct 33.5 L MCV 91.6 MCH 30.8 MCHC 33.7 RDW 14.2 Plt Count 92 L Neut % (Auto) 70.5 Lymph % (Auto) 16.4 L [place] % (Auto) 10.3 Eos % (Auto) 1.6 L Baso % (Auto) 1.2 Neut # (Auto) 5400 Lymph # (Auto) 1200 [place] # (Auto) 800 Eos # (Auto) 100 Baso # (Auto) 100 Sodium 137 Potassium 3.8 Chloride 106 Carbon Dioxide 32 BUN 15 Creatinine 1.06 Estimated GFR > 60 BUN/Creatinine Ratio 14.2 Glucose 167 H Calcium 7.4 L Magnesium 1.8 Total Bilirubin 0.5 Conjugated Bilirubin 0.0 Unconjugated Bilirubin 0.5 AST 45 ALT 38 Alkaline Phosphatase 77 Total Protein 5.2 L Albumin 2.9 L Globulin 2.3 Albumin/Globulin Ratio 1.3 PFSH Medical History Anxiety disorder Diabetes type 2, uncontrolled Morbid obesity with BMI of 40.0-44.9, adult Surgical History Hx of cholecystectomy Family History Mother Status cardiac pacemaker Father Fall down stairs Son Leukemia Social History details: Lives in [place]. Was up to by an RV and was about to drive home household members: none Smoking Status: Current every day smoker alcohol intake: current Assessment & Plan Assessment & Plan narrative: 1. Left inter trochanteric hip fracture pathologic secondary to osteoporosis, ground level fall -s/p ORIF -continue PT, OT -routine pain management -likely SNF discharge 2. Systolic heart failure, chronic, new diagnosis -on admission noted to have elevated BNP and interstitial edema on chest x-ray, does not appear in acute exacerbation -EKG showed sinus rhythm, LAD, frequent PVCs -echo showed decreased LV systolic function, EF 35-40%, mid anterolateral wall severe hypokinesis and apical lateral wall severe hypokinesis consistent with ischemic cardiomyopathy -reviewed findings with patient, multiple CAD risk factors, he denies past history of mi/CHF, does endorse dyspnea on exertion -start lisinopril 10 mg daily, metoprolol succinate ER 25 mg daily, aspirin 81 mg q.d. -check lipid panel and start statin before discharge -patient agrees with treatment plan and outpatient Cardiology follow-up 2. Type 2 diabetes diet controlled -A1c 7.1 3. Vitamin-D deficiency -initiated on oral vitamin-D 5000 units daily 4. Anxiety disorder -continue patient's clonazepam Time Spent With Patient Critical Care time: I spent a total of [] minutes of critical care time on this patient's care today; this time is exclusive of procedural time. Quality VTE Deep Vein Thrombosis/Pulmonary Embolism Present on Admission: No
--- NOTE | 2021-09-17 16:37 | PC.NURSE ---
Pt is AxOx4, needs mod assistance with FWW. VSS except pt's lungs wheezy expiratory and diminished throughout. Pt is on 2L NC; Pt c/o pain on L hip, lower back and headache. Pt recieved PRN Oxy 5mg once and PO Oxy 10mg few times with good effect. Pt has good appetite and BG is in good range: 167/204/142. Pt worked with PT but did not do much due to pain. Catheter is maintaining yellow urine output. No other changes.
[2021-09-17] MEDS: GABAPENTIN 100 MG CAPSULE PO (20:27)
[2021-09-17] MEDS: GABAPENTIN 400 MG CAPSULE PO (21:04)
[2021-09-17] MEDS: TRAZODONE 50 MG TABLET PO (21:13)
[2021-09-18] VITALS (11 sets, daily range): BP systolic 112–147; BP diastolic 56–87; PULSE 71–109; RESP 16–20; TEMP 36.3–38.1; O2SAT 82–95
[2021-09-18] MEDS: OXYCODONE IR 10 MG TABLET PO ×5 (03:17→22:00)
[2021-09-18] MEDS: LOPERAMIDE 2 MG CAPSULE 6 MG PO (06:12)
[2021-09-18] MEDS: INSULIN LISPRO 100 UNIT/ML 3ML VIAL SUBCUT ×3 (08:16→17:36)
[2021-09-18] MEDS: lisinopriL 10 MG TABLET PO (08:19)
[2021-09-18] MEDS: ENOXAPARIN 40 MG/0.4 ML SYRINGE SUBCUT (08:19)
[2021-09-18] MEDS: CHOLECALCIFEROL (VITAMIN D3) 5,000 UNIT TABLET 5000 UNIT PO (08:19)
[2021-09-18] MEDS: ASPIRIN EC 81 MG TABLET PO (08:19)
[2021-09-18] MEDS: METOPROLOL ER 25 MG TABLET PO (08:20)
--- NOTE | 2021-09-18 09:20 | CM.DPC ---
Addendum entered by Ai Rizvi R.N. 09/18/21 13:21: Updated patient on [facility]. He indicated that his vaccine card is in his wallet which is in the safe here at the hospital. Did let unit controller, Higinio, know, that this will be needed for him to go to half-way. Faxed over today's P.T. note to [facility]. Addendum entered by Ai Rizvi R.N. 09/18/21 11:05: Spoke to Le at [facility], confirmed, she can accept patient. She will work on the auth in the am, may have later in the day. Left Le a message regarding patient's weight and social, and will fax P.T. note from today when completed. Original Note: DCP Cont: Le from [facility] had left a message regarding patient. In the message, concerns about how long [employer] would cover, if patient can pay if he needs longer therapy. She also wanted to know if patient has a place to stay after he discharges from [facility], in the area, in case he can't drive for a while. Le also wanted nursing notes and med sheets. Went ahead and faxed them to her, and to [facility] as well. Spoke to patient. Asked him if he has been vaccinated against COVID, stated, he has been, and boosted, with 3 shots. He does have card on him, have not yet retrieved it for a copy. Asked him if he can stay with his sister who lives on [facility], stated, I guess I could, it's just a matter of getting a boat over there. He also indicated that he has a friend in [place] that he is trying to get up here to the , and he can drive him back. Patient also indicated, he does have some money, but would want to know how much it would cost for him to stay at [facility] after insurance stops paying. Patient does have a disease case manager rn through [employer] as well, can give number to Le at [facility]. Left Le a message on her voice mail regarding updated information from patient. P: DCP to continue to follow. Plan is either [facility] or [facility] , will need to follow up in the am to determine which facility will accept. In the message, Le indicated that she may start the [employer] auth. Ai Rizvi RN/Insurance Case Manager
[2021-09-18] MEDS: ALBUTEROL 2.5 MG/3 ML NEB (ADULT) INH (09:22)
--- NOTE | 2021-09-18 09:52 | P.PN_ITS ---
Subjective Subjective Date Patient Seen: 09/18/21 Time Patient Seen: 09:52 Interval history: Postop day 2 left long cephalomedullary nail for intertrochanteric fracture with lateral wall involvement Endorses pain. Required maximal assist with therapy yesterday likely require sniff. [place] which complicates discharge planning. Marginal pain control. No nausea or vomiting. Patient asks me about and instance at work almost 1 year ago when he had heat stroke and what sounds like rhabdomyolysis that was treated with a inpatient hospital stay and hydration. He is wondering if this caused him to fall. Exam Vital Signs (past 8 hours): - 09/18/21 02:00 09/18/21 03:00 09/18/21 06:00 Temperature 100.6 F H Pulse Rate 109 H Respiratory Rate 18 Blood Pressure 133/71 Pulse Oximetry 94 92 94 09/18/21 09:00 09/18/21 09:22 Temperature 97.3 F L Pulse Rate 89 78 Respiratory Rate 16 16 Blood Pressure 140/87 Pulse Oximetry 93 92 Oxygen Delivery Method Nasal Cannula Oxygen Flow Rate 2 Narrative Exam Narrative: Alert and oriented male talkative, tangential Respiratory on labored. Nasal cannula Heart regular rate Musculoskeletal. Left lower extremity minimal motion secondary to pain. Does wiggle toes and demonstrates robust dorsiflexion plantar flexion of the ankle. Palpable distal pulses. Lower extremity and thigh compartments are soft. Dressings are clean dry and intact on the thigh. Well-healed previous surgical scars from bilateral total knees. There is an SCD on the contralateral lower extremity. Objective Imaging Two view left femur: My impression: Immediate postop x-rays AP and lateral left femur demonstrate placement long cep halomedullary nail. There is partial visualization of a total knee prosthesis. Interval reduction of intertrochanteric fracture and placement of intramedullary device, near anatomic alignment Radiologist's impression: IMPRESSION: 1. Improved alignment and postsurgical changes status post ORIF of left intertrochanteric femoral fracture. Dictated by: Ephraim Navarrete M.D. on 09/16/2021 at 21:46 Labs Result Diagrams: 09/17/21 08:15 09/17/21 08:15 [facility] Medical History Anxiety disorder Diabetes type 2, uncontrolled Morbid obesity with BMI of 40.0-44.9, adult Surgical History Hx of cholecystectomy Family History Mother Status cardiac pacemaker Father Fall down stairs Son Leukemia Social History details: Lives in [place]. Was up to by an RV and was about to drive home household members: none Smoking Status: Current every day smoker alcohol intake: current Assessment & Plan Post-op Postoperative Procedures: Procedures Operation Date: 09/16/21 16:30 Actual Procedure Side Surgeon p Intramedullary Nailing Femur Left Rose Marie Butts MD Postoperative day: 2 Postoperative status: marginal pain control and anemia Postoperative status narrative: Marginal pain control. No nausea or vomiting. Postoperative anemia vital signs stable. Does not require transfusion Postoperative plan: routine post-op care Postoperative plan narrative: Continue postoperative care medical management per primary team. Will need to work with therapy. Will need help with discharge planning given patient's complex social situation. Vitamin-D deficiency has been found. 5000 units daily has been initiated this or 64506 units weekly are optiosn for treatment. Recommend outpatient follow-up with primary care or Endocrinology for metabolic bone health and recommend [id number] mg of calcium daily. Weightbear as tolerated left lower extremity. Lovenox for DVT prophylaxis times 28 days. Lovenox for DVT prophylaxis continue through October 14, 2021. Calcium and vitamin-D for bone health. retest Vitamin-D in 2 months to assess for correction. Recommend outpatient osteoporosis treatment given the osteoporotic fracture and presence of vitamin-D deficiency. Patient has jared that will be removed between September 26 and w/ PA at [facility]. Time Spent With Patient Time with patient: less than 15 minutes Quality VTE Deep Vein Thrombosis/Pulmonary Embolism Present on Admission: No
--- NOTE | 2021-09-18 10:03 | PT.IPTN ---
Current Diagnoses Fracture of unspecified part of neck of unspecified femur, initial encounter for closed fracture (09/15/21) Other specified postprocedural states (09/15/21) Surgery Performed Operation Date: 09/16/21 16:30 Actual Procedures p Intramedullary Nailing Femur(Left) - Rose Marie Butts MD Physical Therapy Treatment Note M2 PT-IP Current Condition Start: 09/17/21 12:12 Freq: NEEDED Status: Active Protocol: Document 09/17/21 11:05 AB (Rec: 09/17/21 12:23 AB [id number]) Physical Therapy Current Condition Current Condition Evaluation Date 09/17/21 Treatment Diagnosis L hip fx s/p IM nailing; difficulty in walking Onset Date 09/15/21 M3 PT-IP Subjective Start: 09/17/21 12:12 Freq: NEEDED Status: Active Protocol: Document 09/18/21 10:03 AW (Rec: 09/18/21 12:05 AW [id number]) Subjective Physical Therapy Visit Type Type Treatment Note Visit Start Time 09:35 Visit Stop Time 10:03 Total Visit Minutes 28 Number of HAND GLOVE CLEANER Visits 0 Physical Therapy Visit Comments Patient Comments agreeable to do PT Therapy Pain Assessment Pain When Pain Assessed During Weight Bearing Pain Present Pain Present Pain Reported Location left hip Intensity 10 Scale Used Numeric (0 - 10) Pain Management Techniques Apply Cold,Distraction, Modification of Treatment,Re- positioning,Timing of Activity with Medications M4 PT-IP Mobility and Gait Start: 09/17/21 12:12 Freq: NEEDED Status: Active Protocol: Document 09/18/21 10:03 AW (Rec: 09/18/21 12:05 AW [id number]) PT-Bed Mobility Assessment Supine to Sit Supine to Sit Minimal Assistance,1 Person Assistance,Head of Bed Elevated,Bedrails Scooting Scooting to Edge of Bed Minimal Assistance PT-Transfer Assessment Sit to and From Stand Sit to and from Stand Maximum Assistance,1 Person Assistance,Use of Upper Extremities Equipment Transfer Assistive Device Gait Belt,Front Wheeled Walker Orthotic/Prosthetic Devices or Brace: No Transfers Transfer Destination Chair Transfer Technique Stand Step Pivot Transfer Ability Level of Assist Maximum Assistance,Total Assistance,2 Person Assistance ,Use of Upper Extremities Comments Mobility Comments Pt agreed to get up. Supine BP was 123/77 HR 81. Pt needed extra time, HOB elevated, and heavy use of bed rails but was able to complete supine to sit min A in ~8 minutes. He stood from the bed max A x 1 but had difficulty bearing much weight on LLE. He sat and was able to scoot sideways on the bed x 2 before standing again max A x 1. He was able to shift weight minimally to advance his RLE while going to the left (may have done better going tot he right). DIRECTOR GRAPHICS was present and provided second person assist for step pivot transfer max A x2 initially but needing total A x 2 toward end of transfer as pt was unable to fully pivot and needed assist for hips to chair. Pt was left in reclined position on the chair with call light and tray table in reach. Gait Assessment Gait Gait Assistance Required: Maximum Assistance,Total Assistance,2 Person Assist Distance (Feet) 2 Able to Maintain Weight Bearing Status Yes During Gait Assistive Devices Assistive Device Gait Belt,Front Wheeled Walker Orthotic/Prosthetic Devices or Brace: No Gait Deviations General Gait Pattern Antalgic,Decreased Stride Length,Decreased Feet Clearance,Step-to Gait Factors Limiting Gait Function Factors Limiting Gait Function Decreased Strength,Pain,Poor Balance,Poor Safety Awareness Comments Gait Comments Shuffling pivot steps taken during transfer only. Unable to progress gait beyond total assist transfer. M5 PT-IP Objective Assessments Start: 09/17/21 12:12 Freq: NEEDED Status: Active Protocol: Document 09/17/21 11:05 AB (Rec: 09/17/21 12:23 AB [id number]) Orientation Orientation/Cognition Level of Alertness Alert Orientation Name,Place,Situation Safety Awareness Decreased Safety Awareness Memory Description Short Term Impaired Gross Range of Motion Lower Extremity ROM Assessment Left Impaired Impairments LLE tightness Strength Lower Extremity Strength Assessment Bilaterally Impaired Comments Strength Comments RLE: 4-/5 LLE: 3-/5 Sensation Assessment Sensation Gross Sensation WNL Muscle Tone Muscle Tone WNL Yes M6 PT-IP Treatment Start: 09/17/21 12:12 Freq: NEEDED Status: Active Protocol: Document 09/18/21 10:03 AW (Rec: 09/18/21 12:05 AW [id number]) Physical Therapy Treatment Exercises Exercises Gluteal Sets,Seated Knee Flexion/Extension Education Education Provided Weight Bearing Status,Safety M7 PT-IP Assessment and Plan Start: 09/17/21 12:12 Freq: NEEDED Status: Active Protocol: Document 09/18/21 10:03 AW (Rec: 09/18/21 12:05 AW [id number]) PT Summary Assessment and Plan Potential Rehabilitation Potential Fair Summary Impairments Pain,ROM,Strength,Balance, Coordination,Sensation,Tone, Cognition,Bed Mobility, Transfers,Gait,Activity Tolerance Progress Towards Goals Slow Progress due to Pain,Slow Progress due to Medical Issues,Slow Progress due to Activity Tolerance Assessment Summary Filemon improved his bed mobility this date but needed 8 minutes to complete supine to sit min A. Transfer was max /total assist x 2 with pt unable to meaningfully shift weight for progression to gait . Pt will require SNF rehab to improve strength and functional mobility. Goals Bed Mobility Goal Minimal Assistance Transfer Goal Minimal Assistance,Front Wheeled Walker Gait Goal Minimal Assistance,Front Wheel Walker Gait Distance 50 Other Goals improve bed mobility, transfers using FWW SBA improve ambulation using FWW 100 ft CGA Days to Meet Goals 10 Frequency of Treatment Frequency Of Treatment Twice a Day Treatment Plan Physical Therapy Treatment Plan Bed Mobility Training,Transfer Training,Gait Training, Therapeutic Exercise,Balance Retraining,Post Op Education, Discharge Planning,Hot or Cold Pack,Neuromuscular Re-ed, Coordination Retraining,Manual Therapy Weight Bearing Status Weight Bearing Status Weight Bear as Tolerated Allowed Weight Bearing Amount (enter % LLE WBAT or #) (%) Recommendations To Nursing Amount of Assist Needed Mechanical Lift Discharge Recommendations PT Discharge Recommendations SNF Rehab Transportation Needs at Discharge Wheelchair/Cabulance
[2021-09-18] MEDS: NICOTINE 14 PATCH 14 MG TOP (10:05)
[2021-09-18] MEDS: OXYCODONE IR 5 MG TABLET PO (12:29)
--- NOTE | 2021-09-18 14:20 | PM.PN.1 ---
Subjective Subjective Date Patient Seen: 09/18/21 Interval history: 70-year-old male with cardiomyopathy status post left femur ORIF. Patient complains pain with mobilizing with PT but otherwise doing okay. Exam Vital Signs (past 8 hours): - 09/18/21 09:00 09/18/21 09:22 09/18/21 13:27 Temperature 97.3 F L 97.9 F Pulse Rate 89 78 76 Respiratory Rate 16 16 16 Blood Pressure 140/87 112/56 L Pulse Oximetry 93 92 95 09/18/21 13:41 Temperature Pulse Rate 76 Respiratory Rate Blood Pressure 112/56 L Pulse Oximetry Oxygen Delivery Method Nasal Cannula Oxygen Flow Rate 2 Narrative Exam Narrative: General: Alert sitting in chair and in no acute distress Left hip postop dressing clean and dry, no distal edema Objective Labs Result Diagrams: 09/17/21 08:15 09/17/21 08:15 [facility] Medical History Anxiety disorder Diabetes type 2, uncontrolled Morbid obesity with BMI of 40.0-44.9, adult Surgical History Hx of cholecystectomy Family History Mother Status cardiac pacemaker Father Fall down stairs Son Leukemia Social History details: Lives in [place]. Was up to by an RV and was about to drive home household members: none Smoking Status: Current every day smoker alcohol intake: current Assessment & Plan Assessment & Plan narrative: 1.? Left inter trochanteric hip fracture pathologic secondary to osteoporosis, ground level fall -s/p ORIF -continue PT, OT -routine pain management -likely SNF discharge Sunday -ortho recommendations: Lovenox for DVT prophylaxis continue through October 14, 2021.? Calcium and vitamin-D for bone health. retest Vitamin-D in 2 months to assess for correction.? Recommend outpatient osteoporosis treatment given the osteoporotic fracture and presence of vitamin-D deficiency.? Patient has jared that will be removed between September 26 and w/ PA at [facility]. 2. Systolic heart failure, probable ischemic cardiomyopathy, chronic, new diagnosis -on admission noted to have elevated BNP and interstitial edema on chest x-ray, does not appear in acute exacerbation -patient endorses chronic dyspnea on exertion since he got admitted to outside hospital a year ago with rhabdo -EKG showed sinus rhythm, LAD, frequent PVCs -echo showed decreased LV systolic function, EF 35-40%, mid anterolateral wall severe hypokinesis and apical lateral wall severe hypokinesis consistent with ischemic cardiomyopathy -reviewed findings with patient, multiple CAD risk factors, he denies past history of mi/CHF, does endorse dyspnea on exertion -start lisinopril 10 mg daily, metoprolol succinate ER 25 mg daily, aspirin 81 mg q.d. -LDL 72, started atorvastatin 10 mg q.d. -patient agrees with treatment plan and outpatient Cardiology follow-up once he has recovered from his surgery 2. Type 2 diabetes diet controlled -A1c 7.1 3. Vitamin-D deficiency -initiated on oral vitamin-D 5000 units daily 4.? Anxiety disorder -continue patient's clonazepam Time Spent With Patient Critical Care time: I spent a total of [] minutes of critical care time on this patient's care today; this time is exclusive of procedural time. Quality VTE Deep Vein Thrombosis/Pulmonary Embolism Present on Admission: No
[2021-09-18] MEDS: ALBUTEROL/IPRATROPIUM 3 ML AMPUL INH (15:05)
--- NOTE | 2021-09-18 18:08 | PC.NURSE ---
Pt is AxOx4, needs max assistance. VSS, pt has no Tele. Pt c/o on L hip and recieves PRN Oxy 10mg few times and 5mg Oxy once with good effect. BG-140/181/174. Pt is eating well. Pt still have difficulty moving or getting OOB due to pain L hip. Continued on 2L NC. Dressing on R midline changed. Catheter is draining clear, yellow urine output. However, urine output is not much all day (350ML) PVR-0ml. Otherwise, no changes.
[2021-09-18] MEDS: TRAZODONE 50 MG TABLET PO (21:32)
[2021-09-18] MEDS: ATORVASTATIN 20 MG TABLET 10 MG PO (21:32)
[2021-09-18] MEDS: clonazePAM 0.5 MG TABLET PO (21:35)
[2021-09-18] MEDS: ACETAMINOPHEN 325 MG TABLET 975 MG PO (22:49)
[2021-09-19] VITALS (13 sets, daily range): BP systolic 125–143; BP diastolic 69–92; PULSE 68–93; RESP 18–20; TEMP 36.4–36.6; O2SAT 91–95
[2021-09-19] MEDS: OXYCODONE IR 10 MG TABLET PO ×6 (04:52→23:56)
[2021-09-19] MEDS: clonazePAM 0.5 MG TABLET PO ×2 (06:50→17:52)
--- NOTE | 2021-09-19 07:58 | PM.PNPO.1 ---
Subjective Subjective Date Patient Seen: 09/19/21 Time Patient Seen: 07:58 Exam Vital Signs (past 8 hours): - 09/19/21 02:00 09/19/21 04:43 09/19/21 06:00 Temperature 97.6 F Pulse Rate 85 Respiratory Rate 18 Blood Pressure 132/76 Pulse Oximetry 93 91 91 Oxygen Delivery Method Nasal Cannula Oxygen Flow Rate 7 Narrative Exam Narrative: 3/5 strength in hip flexors, quadriceps, hamstrings on left. 5/5 DF, PF, EHL. Sensation to light touch intact throughout BLE. Calves soft, compressible, nontender and without palpable cords or masses. Old bloody drainage on dressings; dressings otherwise intact. Objective Labs Result Diagrams: 09/17/21 08:15 09/17/21 08:15 [facility] Medical History Anxiety disorder Diabetes type 2, uncontrolled Morbid obesity with BMI of 40.0-44.9, adult Surgical History Hx of cholecystectomy Family History Mother Status cardiac pacemaker Father Fall down stairs Son Leukemia Social History details: Lives in [place]. Was up to by an RV and was about to drive home household members: none Smoking Status: Current every day smoker alcohol intake: current Assessment & Plan Post-op Assessment and plan (1) Status post hip surgery: Assessment and Plan narrative: Vitamin-D deficiency has been found.? 5000 units daily has been initiated this or 00932 units weekly are optimal for treatment.? Retest vitamin D in 2 months to assess for correction. Recommend outpatient follow-up with primary care or Endocrinology for metabolic bone health and recommend [phone] mg of calcium daily. Weightbear as tolerated left lower extremity.? Lovenox for DVT prophylaxis continue through October 14, 2021.? Patient has jared that will be removed between September 26 and w/ PA at [facility]. Postoperative Procedures: Procedures Operation Date: 09/16/21 16:30 Actual Procedure Side Surgeon p Intramedullary Nailing Femur Left Rose Marie Butts MD Postoperative day: 3 Quality VTE Deep Vein Thrombosis/Pulmonary Embolism Present on Admission: No
[2021-09-19] MEDS: CHOLECALCIFEROL (VITAMIN D3) 5,000 UNIT TABLET 5000 UNIT PO (09:21)
[2021-09-19] MEDS: INSULIN LISPRO 100 UNIT/ML 3ML VIAL SUBCUT ×3 (09:21→17:47)
[2021-09-19] MEDS: DOCUSATE 100 MG CAPSULE PO (09:21)
[2021-09-19] MEDS: ENOXAPARIN 40 MG/0.4 ML SYRINGE SUBCUT (09:21)
[2021-09-19] MEDS: ASPIRIN EC 81 MG TABLET PO (09:21)
[2021-09-19] MEDS: lisinopriL 10 MG TABLET PO (09:22)
[2021-09-19] MEDS: METOPROLOL ER 25 MG TABLET PO (09:22)
[2021-09-19] MEDS: NICOTINE 14 PATCH 14 MG TOP (09:22)
--- NOTE | 2021-09-19 11:10 | PT.IPTN ---
Current Diagnoses Fracture of unspecified part of neck of unspecified femur, initial encounter for closed fracture (09/15/21) Other specified postprocedural states (09/15/21) Surgery Performed Operation Date: 09/16/21 16:30 Actual Procedures p Intramedullary Nailing Femur(Left) - Rose Marie Butts MD Physical Therapy Treatment Note M2 PT-IP Current Condition Start: 09/17/21 12:12 Freq: NEEDED Status: Active Protocol: Document 09/19/21 10:38 SP (Rec: 09/19/21 16:42 SP [id number]) Physical Therapy Current Condition Current Condition Evaluation Date 09/17/21 Treatment Diagnosis L hip fx s/p IM nailing; difficulty in walking Onset Date 09/15/21 M3 PT-IP Subjective Start: 09/17/21 12:12 Freq: NEEDED Status: Active Protocol: Document 09/19/21 10:38 SP (Rec: 09/19/21 16:42 SP [id number]) Subjective Physical Therapy Visit Type Type Treatment Note Visit Start Time 10:38 Visit Stop Time 11:10 Total Visit Minutes 32 Notes Vitals taken during tx: supine: 124/78 HR 75 SaO2 95% on RA seated EOB: 114/73 HR 82 JET WIPER provided 2nd person assist during mobility. Number of LICENSING COURT MAGISTRATE Visits 1 Physical Therapy Visit Comments Patient Comments agreeable to do PT Therapy Pain Assessment Pain When Pain Assessed During Weight Bearing Pain Present Pain Present Pain Reported Location left hip Intensity 8 Scale Used Numeric (0 - 10) Pain Behaviors Facial Grimacing Pain Management Techniques Apply Cold,Distraction, Modification of Treatment,Re- positioning,Timing of Activity with Medications M4 PT-IP Mobility and Gait Start: 09/17/21 12:12 Freq: NEEDED Status: Active Protocol: Document 09/19/21 10:38 SP (Rec: 09/19/21 16:42 SP [id number]) PT-Bed Mobility Assessment Supine to Sit Supine to Sit Maximum Assistance,1 Person Assistance,Head of Bed Elevated,Bedrails Scooting Scooting to Edge of Bed Moderate Assistance,Maximum Assistance PT-Transfer Assessment Sit to and From Stand Sit to and from Stand Maximum Assistance,1 Person Assistance,2 Person Assistance ,Use of Upper Extremities Equipment Transfer Assistive Device Gait Belt,Front Wheeled Walker Orthotic/Prosthetic Devices or Brace: No Transfers Transfer Destination Chair Transfer Technique Stand Step Pivot Transfer Ability Level of Assist Maximum Assistance,2 Person Assistance,Use of Upper Extremities Comments Mobility Comments Pt agreeable to working with therapy 2nd attempt, 1st was just premedicated and wanted time to take affect. Elevated supine>sit Max A x1 for pelvic scoot toward EOB, and trunk righting w/ Grab bar self support assist, scoot EOB Max A x1. Sit>stand Max A x2 and each foot lateral scoot w/ FWW . Max cues for sequencing BLE and support FWW repositioning 3 ft total, max A descend to sit chair. Pt had call light and all needs in reach before left. Provided CP for L hip to support pain control assist. Gait Assessment Gait Gait Assistance Required: Maximum Assistance,2 Person Assist Distance (Feet) 3 Able to Maintain Weight Bearing Status Yes During Gait Assistive Devices Assistive Device Gait Belt,Front Wheeled Walker Orthotic/Prosthetic Devices or Brace: No Gait Deviations General Gait Pattern Antalgic,Decreased Stride Length,Decreased Feet Clearance,Step-to Gait Factors Limiting Gait Function Factors Limiting Gait Function Decreased Activity Tolerance, Decreased Strength,Pain,Poor Balance,Poor Safety Awareness Comments Gait Comments Lateral scoot each foot w/ nonskid socks (hard to reposition but able to do), support to LLE for safety stabilitiy during RLE locomotion, reduce risk of buckling/ was unsteady during midstance. Stair Climbing Assessment Comments Stair Climbing Comments unable at this time, has 4 stairs into RV to complete for safe DC home when able. PT-Balance Assessment Sitting Balance and Reactions Static Sitting Balance Ability Fair Dynamic Sitting Balance Ability Fair Standing Balance and Reactions Static Standing Balance Ability Poor Dynamic Standing Balance Ability Poor Device Used FWW M5 PT-IP Objective Assessments Start: 09/17/21 12:12 Freq: NEEDED Status: Active Protocol: Document 09/17/21 11:05 AB (Rec: 09/17/21 12:23 AB [id number]) Orientation Orientation/Cognition Level of Alertness Alert Orientation Name,Place,Situation Safety Awareness Decreased Safety Awareness Memory Description Short Term Impaired Gross Range of Motion Lower Extremity ROM Assessment Left Impaired Impairments LLE tightness Strength Lower Extremity Strength Assessment Bilaterally Impaired Comments Strength Comments RLE: 4-/5 LLE: 3-/5 Sensation Assessment Sensation Gross Sensation WNL Muscle Tone Muscle Tone WNL Yes M6 PT-IP Treatment Start: 09/17/21 12:12 Freq: NEEDED Status: Active Protocol: Document 09/19/21 10:38 SP (Rec: 09/19/21 16:42 SP [id number]) Physical Therapy Treatment Exercises Exercises Ankle Pumps,Gluteal Sets, Seated Knee Flexion/Extension Education Education Provided Weight Bearing Status,Safety M7 PT-IP Assessment and Plan Start: 09/17/21 12:12 Freq: NEEDED Status: Active Protocol: Document 09/19/21 10:38 SP (Rec: 09/19/21 16:42 SP [id number]) PT Summary Assessment and Plan Potential Rehabilitation Potential Fair Status of Condition at Evaluation Evolving Summary Impairments Pain,ROM,Strength,Balance, Coordination,Sensation,Tone, Cognition,Bed Mobility, Transfers,Gait,Activity Tolerance Progress Towards Goals Slow Progress due to Pain,Slow Progress due to Activity Tolerance Assessment Summary Pt improved able to get EOB heavy 1 person w/ use transfer pad, STS Max A x2 w/ FWW and able to lateral scoot each LE heavy BUE on FWW bed>chair. Pt will require SNF rehab to improve strength and functional mobility. Goals Bed Mobility Goal Minimal Assistance Transfer Goal Minimal Assistance,Front Wheeled Walker Gait Goal Minimal Assistance,Front Wheel Walker Gait Distance 50 Other Goals improve bed mobility, transfers using FWW SBA improve ambulation using FWW 100 ft CGA Days to Meet Goals 10 Frequency of Treatment Frequency Of Treatment Twice a Day Treatment Plan Physical Therapy Treatment Plan Bed Mobility Training,Transfer Training,Gait Training, Therapeutic Exercise,Balance Retraining,Post Op Education, Discharge Planning,Hot or Cold Pack,Neuromuscular Re-ed, Coordination Retraining,Manual Therapy Other Recommendations and Next Treatment bed mob, transfers, LE ex Focus improve strength, gait when able using FWW. Weight Bearing Status Weight Bearing Status Weight Bear as Tolerated Allowed Weight Bearing Amount (enter % LLE WBAT or #) (%) Recommendations To Nursing Amount of Assist Needed 2 Person Assist Discharge Recommendations PT Discharge Recommendations SNF Rehab Equipment Needed for Home Before FWW, defer to SNF Discharge Transportation Needs at Discharge Wheelchair/Cabulance
--- NOTE | 2021-09-19 13:01 | CM.DPC ---
[facility]CP [facility] Per MD, pt has remained stable and awaiting insurance auth for SNF. SW spoke to [facility] and confirmed they submitted auth and just received [employer] auth for pt for their facility but cannot accept until tomorrow due to bed and staffing issues and scheduled transport for 1300. Confirmed pt will need updated COVID swab prior to d/c tomorrow for [facility]. JAYCEE updated MD and RN. SW met bedside with pt and explained role and updated on acceptance at [facility] and insurance auth approval and transport tomorrow about 1300. Pt is agreeable, and had some questions regarding post d/c from SNF and SW offered to get [facility] on the phone so he can ask but he declined and states he will just ask when he arrives at their facility tomorrow. Pt has many adventure stories and experiences and seems to have a lot of supportive friends and family that live all over the country, but mostly [place] where he is from. SW received a copy of pt's COVID vaccination card from his wallet in the safe and updated [facility] and will just need to fax copy of COVID vax, PASRR and d/c packet to [facility] at discharge tomorrow. Plan: SW to follow for plan of d/c to [facility] tomorrow Tu09/20/21 at 1300 via facility van. Need updated COVID swab at d/c. DESTIN Abdalla
--- NOTE | 2021-09-19 13:27 | PT.IPTN ---
Current Diagnoses Fracture of unspecified part of neck of unspecified femur, initial encounter for closed fracture (09/15/21) Other specified postprocedural states (09/15/21) Surgery Performed Operation Date: 09/16/21 16:30 Actual Procedures p Intramedullary Nailing Femur(Left) - Rose Marie Butts MD Physical Therapy Treatment Note M2 PT-IP Current Condition Start: 09/17/21 12:12 Freq: NEEDED Status: Active Protocol: Document 09/19/21 13:10 SP (Rec: 09/19/21 16:58 SP [id number]) Physical Therapy Current Condition Current Condition Evaluation Date 09/17/21 Treatment Diagnosis L hip fx s/p IM nailing; difficulty in walking Onset Date 09/15/21 M3 PT-IP Subjective Start: 09/17/21 12:12 Freq: NEEDED Status: Active Protocol: Document 09/19/21 13:10 SP (Rec: 09/19/21 16:58 SP [id number]) Subjective Physical Therapy Visit Type Type Treatment Note Visit Start Time 13:10 Visit Stop Time 13:27 Total Visit Minutes 17 Number of CAPPER MACHINE OPERATOR Visits 2 Physical Therapy Visit Comments Patient Comments agreeable to do PT Patient Goals go to rehab to get stronger to allow go home in RV. Therapy Pain Assessment Pain When Pain Assessed During Weight Bearing Pain Present Pain Present Pain Reported Location left hip Intensity 8 Scale Used Numeric (0 - 10) Pain Behaviors Facial Grimacing Pain Management Techniques Apply Cold,Distraction, Modification of Treatment,Re- positioning,Timing of Activity with Medications M4 PT-IP Mobility and Gait Start: 09/17/21 12:12 Freq: NEEDED Status: Active Protocol: Document 09/19/21 13:10 SP (Rec: 09/19/21 16:58 SP [id number]) PT-Bed Mobility Assessment Sit to Supine Sit to Supine Contact Guard Assistance, Maximum Assistance,2 Person Assistance,Bedrails Scooting Scooting Up and Down in Bed Minimal Assistance PT-Transfer Assessment Sit to and From Stand Sit to and from Stand Maximum Assistance,2 Person Assistance,Use of Upper Extremities Equipment Transfer Assistive Device Gait Belt,Front Wheeled Walker Orthotic/Prosthetic Devices or Brace: No Transfers Transfer Destination Bed Transfer Technique Stand Step Pivot Transfer Ability Level of Assist Contact Guard Assistance, Maximum Assistance,2 Person Assistance,Use of Upper Extremities Comments Mobility Comments Scoot to EOchair self with chair arms, Sit>stand Max A x2 , SPT chair>bed Max A x1 and CGA of WELL SERVICING RIG OPERATOR and pt ableto manage FWW self and Step RLE with heavy BUE on FWW to support LLE straight, not as unstable this tx and able to slide LLE w/ nonskid socks this tx. Stand> sit Mod A x1 cued reach back. Pt lateral scoot up side bed 2 Min A, sit>supine CGA WELL SERVICING RIG OPERATOR and Max A x1 for BLE into bed L>RLE. Pt able to scoot self up Min A, bed rails and RLE bent knee Wb on bed. Instructed pt BLE exercises (written on communictaion board: AP, HS and hip abd w/ Strap, QS/ GS). Pt had call light and all needs in reach, provided CP for pain control. Bed alarmed, call light and all needs inreach before left. Gait Assessment Gait Gait Assistance Required: Contact Guard Assist,Maximum Assistance,2 Person Assist Distance (Feet) 3 Able to Maintain Weight Bearing Status Yes During Gait Assistive Devices Assistive Device Gait Belt,Front Wheeled Walker Orthotic/Prosthetic Devices or Brace: No Gait Deviations General Gait Pattern Antalgic,Decreased Stride Length,Decreased Feet Clearance,Step-to Gait Factors Limiting Gait Function Factors Limiting Gait Function Decreased Activity Tolerance, Decreased Strength,Pain,Poor Balance,Poor Safety Awareness Comments Gait Comments see mobililty comments. Stair Climbing Assessment Comments Stair Climbing Comments unable at this time, has 4 stairs into RV to complete for safe DC home when able. PT-Balance Assessment Sitting Balance and Reactions Static Sitting Balance Ability Good Dynamic Sitting Balance Ability Fair Standing Balance and Reactions Static Standing Balance Ability Poor Dynamic Standing Balance Ability Poor Device Used FWW M5 PT-IP Objective Assessments Start: 09/17/21 12:12 Freq: NEEDED Status: Active Protocol: Document 09/17/21 11:05 AB (Rec: 09/17/21 12:23 AB [id number]) Orientation Orientation/Cognition Level of Alertness Alert Orientation Name,Place,Situation Safety Awareness Decreased Safety Awareness Memory Description Short Term Impaired Gross Range of Motion Lower Extremity ROM Assessment Left Impaired Impairments LLE tightness Strength Lower Extremity Strength Assessment Bilaterally Impaired Comments Strength Comments RLE: 4-/5 LLE: 3-/5 Sensation Assessment Sensation Gross Sensation WNL Muscle Tone Muscle Tone WNL Yes M6 PT-IP Treatment Start: 09/17/21 12:12 Freq: NEEDED Status: Active Protocol: Document 09/19/21 13:10 SP (Rec: 09/19/21 16:58 SP [id number]) Physical Therapy Treatment Exercises Exercises Ankle Pumps,Gluteal Sets,Quad Sets,Heel Slides,Supine Hip Abduction Knee ROM Measurement 35 deg Education Education Provided Weight Bearing Status,Safety M7 PT-IP Assessment and Plan Start: 09/17/21 12:12 Freq: NEEDED Status: Active Protocol: Document 09/19/21 13:10 SP (Rec: 09/19/21 16:58 SP [id number]) PT Summary Assessment and Plan Potential Rehabilitation Potential Fair Status of Condition at Evaluation Evolving Summary Impairments Pain,ROM,Strength,Balance, Coordination,Sensation,Tone, Cognition,Bed Mobility, Transfers,Gait,Activity Tolerance Progress Towards Goals Slow Progress due to Pain,Slow Progress due to Activity Tolerance Assessment Summary Pt improved in mobility with decreased assist Max A x2 STS w/FWW, SPT w/ FWw Max A x1 and CGA of 1 for safety not consistant yet. stand> sit max A x1 BLE into bed, CGA trunk support w/ heavy BUE on bed rail. Pt HEP in bed BLEs for self strengthening, he had call light and all needs in reach and bed alarmed. Goals Bed Mobility Goal Minimal Assistance Transfer Goal Minimal Assistance,Front Wheeled Walker Gait Goal Minimal Assistance,Front Wheel Walker Gait Distance 50 Other Goals improve bed mobility, transfers using FWW SBA improve ambulation using FWW 100 ft CGA Days to Meet Goals 10 Frequency of Treatment Frequency Of Treatment Twice a Day Treatment Plan Physical Therapy Treatment Plan Bed Mobility Training,Transfer Training,Gait Training, Therapeutic Exercise,Balance Retraining,Post Op Education, Discharge Planning,Hot or Cold Pack,Neuromuscular Re-ed, Coordination Retraining,Manual Therapy Other Recommendations and Next Treatment bed mob, transfers, LE ex Focus improve strength, gait when able using FWW. Weight Bearing Status Weight Bearing Status Weight Bear as Tolerated Allowed Weight Bearing Amount (enter % LLE WBAT or #) (%) Recommendations To Nursing Amount of Assist Needed 2 Person Assist Discharge Recommendations PT Discharge Recommendations SNF Rehab Equipment Needed for Home Before FWW, defer to SNF Discharge Transportation Needs at Discharge Wheelchair/Cabulance
[2021-09-19] MEDS: ACETAMINOPHEN 325 MG TABLET 975 MG PO ×2 (14:14→21:50)
--- NOTE | 2021-09-19 15:24 | PM.PN.1 ---
Subjective Subjective Date Patient Seen: 09/19/21 Interval history: 70-year-old male with cardiomyopathy status post left femur ORIF.? Patient complains pain with mobilizing with PT but otherwise doing okay. No fever, chills, chest pain. He has chronic dyspnea but he is a little anxious about having a bowel movement as well. No SNF bed available today, but plan is for tomorrow. Exam Vital Signs (past 8 hours): - 09/19/21 08:00 09/19/21 08:49 09/19/21 09:22 Temperature 98 F Pulse Rate 72 Respiratory Rate 19 Blood Pressure 143/92 H 143/92 H Pulse Oximetry 94 92 09/19/21 09:52 09/19/21 12:00 Temperature 97.6 F Pulse Rate 68 77 Respiratory Rate 19 Blood Pressure 125/78 Pulse Oximetry 95 Oxygen Delivery Method Room Air Oxygen Flow Rate 0 Narrative Exam Narrative: General:? Alert sitting in bed and in no acute distress CV: RRR with 2/6 systolic murmur, no rubs or gallops Pulm: CTA b/l no wheezing rhonchi or rales Ext: No edema or joint effusions Left hip postop dressing clean and dry Objective Labs Result Diagrams: 09/17/21 08:15 09/17/21 08:15 [facility] Medical History Anxiety disorder Diabetes type 2, uncontrolled Morbid obesity with BMI of 40.0-44.9, adult Surgical History Hx of cholecystectomy Family History Mother Status cardiac pacemaker Father Fall down stairs Son Leukemia Social History details: Lives in [place]. Was up to by an RV and was about to drive home household members: none Smoking Status: Current every day smoker alcohol intake: current Assessment & Plan Assessment & Plan narrative: 1.? Left inter trochanteric hip fracture pathologic secondary to osteoporosis, ground level fall -s/p ORIF -continue PT, OT -routine pain management -likely SNF discharge tomorrow -ortho recommendations: Lovenox for DVT prophylaxis continue through October 14, 2021.? Calcium and vitamin-D for bone health. retest Vitamin-D in 2 months to assess for correction.? Recommend outpatient osteoporosis treatment given the osteoporotic fracture and presence of vitamin-D deficiency.? Patient has jared that will be removed between September 26 and w/ PA at [facility]. 2. Systolic heart failure, probable ischemic cardiomyopathy, presumed chronic, new diagnosis -on admission noted to have elevated BNP and interstitial edema on chest x-ray, does not appear in acute exacerbation -patient endorses chronic dyspnea on exertion since he got admitted to outside hospital a year ago with rhabdo -EKG showed sinus rhythm, LAD, frequent PVCs -echo showed decreased LV systolic function, EF 35-40%, mid anterolateral wall severe hypokinesis and apical lateral wall severe hypokinesis consistent with ischemic cardiomyopathy -reviewed findings with patient, multiple CAD risk factors, he denies past history of mi/CHF, does endorse dyspnea on exertion -start lisinopril 10 mg daily, metoprolol succinate ER 25 mg daily, aspirin 81 mg q.d. -LDL 72, started atorvastatin 40 mg q.d. -patient agrees with treatment plan and outpatient Cardiology follow-up once he has recovered from his surgery 2. Type 2 diabetes diet controlled -A1c 7.1 -will discuss metformin potentially on discharge. 3. Vitamin-D deficiency -initiated on oral vitamin-D 5000 units daily 4.? Anxiety disorder -continue patient's clonazepam Time Spent With Patient Critical Care time: I spent a total of [] minutes of critical care time on this patient's care today; this time is exclusive of procedural time. Quality VTE Deep Vein Thrombosis/Pulmonary Embolism Present on Admission: No
[2021-09-19] MEDS: TRAZODONE 50 MG TABLET PO (20:39)
[2021-09-19] MEDS: ATORVASTATIN 20 MG TABLET 40 MG PO (20:40)
[2021-09-20] VITALS (9 sets, daily range): BP systolic 150–155; BP diastolic 59–79; PULSE 67–77; RESP 16–20; TEMP 36.1–36.2; O2SAT 93–94
[2021-09-20] MEDS: OXYCODONE IR 10 MG TABLET PO ×3 (05:43→13:00)
[2021-09-20] MEDS: clonazePAM 0.5 MG TABLET PO (07:53)
[2021-09-20] MEDS: INSULIN LISPRO 100 UNIT/ML 3ML VIAL SUBCUT ×2 (07:53→12:36)
[2021-09-20] MEDS: ENOXAPARIN 40 MG/0.4 ML SYRINGE SUBCUT (07:57)
[2021-09-20] MEDS: DOCUSATE 100 MG CAPSULE PO (07:57)
[2021-09-20] MEDS: CHOLECALCIFEROL (VITAMIN D3) 5,000 UNIT TABLET 5000 UNIT PO (07:57)
[2021-09-20] MEDS: lisinopriL 10 MG TABLET PO (07:57)
[2021-09-20] MEDS: ASPIRIN EC 81 MG TABLET PO (07:57)
[2021-09-20] MEDS: METOPROLOL ER 25 MG TABLET PO (07:57)
[2021-09-20] MEDS: NICOTINE 14 PATCH 14 MG TOP (07:58)
--- NOTE | 2021-09-20 08:49 | PM.DS.1 ---
History of Present Illness History of Present Illness Date Patient Seen: 09/20/21 Time Patient Seen: 08:49 Chief complaint: Fall with Lt. hip pain Narrative: Per CATHI Suero: Damien Dickens is a 70-year-old male traveling from his home state of [place].? He is a difficult historian and goes off on tangents when providing history.? Had a family member in the area that had sold him a motor home and he had planned on placing his car on a ramp trailer.? From what I could gather it sounded like between the car and the ramp trailer he was unable to get the car firmly secured on the ramp trailer.? He went inside the car and when he was ready to get out of the car he was unable to open the door so he crawled out the window, fell landing on his left hip.? He denies hitting his head, he does have a scar on his nose after having undergone what appears to be Mohs surgery for basal cell carcinoma, he denies blacking out, headaches, visual changes, difficulty swallowing, shortness of breath, chest pain, nausea vomiting, dysuria, he does state he has chronic diarrhea due to having his gallbladder removed and insists on taking Imodium scheduled.? He is also diabetic however he quit taking metformin because his brother is ?a Of chemistry, makes a lot of money and knows what he is talking about.? He is without a PCP in [place] , she relocated to a different area and he has had a hard time finding a new one.? It is unclear where he actually resides as he states he was living in [place] but apparently keeps a legal address in [place]. Chest x-ray ordered in the ED indicated bilateral interstitial prominence and mild cardiomegaly possibly secondary to mild CHF for interstitial lung disease.? He did have a proBNP of 1300.? X-ray of the left hip indicates moderately displaced and angulated comminuted fracture of the left intratrochanteric femur and a chronic appearing left obturator ring fracture.? Is afebrile, blood pressure 155/88, heart rate 83, respiratory rate 16, oxygen saturation 97% on room air he weighs 107.5 kg with a BMI of 37. Discharge Providers Provider Date of admission: 09/15/21 18:22 Discharge Date: 09/20/21 Consults: 09/16/21 21:07 Consult to Discharge Planning Routine Comment: Consult to Physical Therapy Evaluate & Treat Comment: wbat--no hip precautions Physician Instructions: Evaluate and Treat Consult to Respiratory Therapy Evaluate & Treat Comment: Physician Instructions: Evaluate and treat Discharge provider: Papo Farnsworth DO Summary Hospital Course Discharge Diagnosis: Please see hospital course by problem list noted below: Hospital Course: This is a 70 year old male admitted after a fall with a left hip fracture. He underwent ORIF with orthopedic surgery. He was also found to have a new diagnosis of systolic heart failure, probably ischemic in nature. 1.? Left inter trochanteric hip fracture pathologic secondary to osteoporosis, ground level fall -s/p ORIF with orthopedics. -ortho recommendations: Lovenox for DVT prophylaxis continue through October 14, 2021.? Calcium and vitamin-D for bone health. retest Vitamin-D in 2 months to assess for correction.? Recommend outpatient osteoporosis treatment given the osteoporotic fracture and presence of vitamin-D deficiency.? Patient has jared that will be removed between September 26 and w/ PA at [facility]. 2. Systolic heart failure, probable ischemic cardiomyopathy, presumed chronic, new diagnosis -on admission noted to have elevated BNP and interstitial edema on chest x-ray, he did not appear in acute exacerbation -patient endorses chronic dyspnea on exertion since he got admitted to outside hospital a year ago with rhabdo -EKG showed sinus rhythm, LAD, frequent PVCs -echo showed decreased LV systolic function, EF 35-40%, mid anterolateral wall severe hypokinesis and apical lateral wall severe hypokinesis consistent with ischemic cardiomyopathy -started lisinopril 10 mg daily, metoprolol succinate ER 25 mg daily, aspirin 81 mg q.d. -LDL 72, started atorvastatin 40 mg q.d. -patient agrees with treatment plan and outpatient Cardiology follow-up once he has recovered from his surgery 2. Type 2 diabetes diet controlled -A1c 7.1 -plan for metformin at discharge. 3. Vitamin-D deficiency -initiated on oral vitamin-D 5000 units daily 4.? Anxiety disorder -continue patient's clonazepam 5. Myocardial injury. - elevated troponin on admission, downtrended quickly, no chest pain or ischemic changes on ekg. Time Spent with Patient Time spent: Greater than 30 minutes Exam Vital Signs (past 8 hours): - 09/20/21 02:00 09/20/21 04:00 09/20/21 06:00 Pulse Rate 76 Respiratory Rate 18 Blood Pressure 155/78 H Pulse Oximetry 94 94 94 09/20/21 07:57 Pulse Rate Respiratory Rate Blood Pressure 153/59 H Pulse Oximetry Oxygen Delivery Method Room Air Oxygen Flow Rate 4 Narrative Exam Narrative: General:? Alert sitting in bed and in no acute distress CV: RRR with 2/6 systolic murmur, no rubs or gallops Pulm: CTA b/l no wheezing rhonchi or rales Ext: No edema or joint effusions Left hip postop dressing clean and dry Objective Labs Result Diagrams: 09/17/21 08:15 09/17/21 08:15 [facility] Medical History Anxiety disorder Diabetes type 2, uncontrolled Morbid obesity with BMI of 40.0-44.9, adult Surgical History Hx of cholecystectomy Family History Mother Status cardiac pacemaker Father Fall down stairs Son Leukemia Social History details: Lives in [place]. Was up to by an RV and was about to drive home household members: none Smoking Status: Current every day smoker alcohol intake: current Discharge Plan Discharge Plan Patient Disposition: SNF Transfer to: [facility] Provider Discharge Comment: Please see discharge summary. Discharge orders & Medications Prescriptions: New acetaminophen 325 mg Tablet 975 mg PO Q8HR PRN (Reason: Fever/Mild Pain (1-3)) 30 Days Qty: 90 0RF aspirin 81 mg Tablet,Delayed Release (Dr/Ec) 81 mg PO DAILY 30 Days Qty: 30 0RF atorvastatin 40 mg tablet 40 mg PO BEDTIME 30 Days Qty: 30 0RF docusate sodium 100 mg Capsule 100 mg PO BID 30 Days Qty: 60 0RF enoxaparin [Lovenox] 40 mg/0.4 mL Syringe 40 mg SUBCUT DAILY 26 Days Qty: 10.4 0RF cholecalciferol (vitamin D3) [Vitamin D3] 125 mcg (5,000 unit) Tablet 5,000 unit PO DAILY 30 Days Qty: 30 0RF nicotine 14 mg/24 hr Patch 24 Hour 14 mg topical DAILY 7 Days Qty: 7 0RF loperamide 2 mg Capsule 6 mg PO 0600 14 Days Qty: 42 0RF trazodone 50 mg Tablet 50 mg PO BEDTIME 30 Days Qty: 30 0RF lisinopril 10 mg Tablet 10 mg PO DAILY 30 Days Qty: 30 0RF metoprolol succinate 25 mg Tablet Extended Release 24 Hr 25 mg PO DAILY 30 Days Qty: 30 0RF oxycodone 10 mg Tablet 10 mg PO Q3HR PRN (Reason: Pain, Severe (7-10)) 7 Days Qty: 50 0RF metformin 500 mg tablet 500 mg PO BID 30 Days Qty: 60 0RF Continued clonazepam 2 mg Tablet 2 mg PO BID 7 Days Qty: 14 0RF Follow up/Referrals: Rose Marie Butts MD [Physician] - 2 Weeks (Follow up with a PA in office between September 26 and September 30 for evaluation and staple removal.) Discharge Health Status Multidrug resistant organism: No MDRO Precautions: [place] Diet/Activity/Treatments Diet: Diet as Tolerated and Carb-consistent/Diabetic Liquid consistency: Normal/Thin Food texture: Regular Activity: Weight bearing as tolerated to LLE. Catheter comment: Catheter removed 5/10 AM. Skin/Wound/Dressing Care Dressing: May shower, keep dressing as dry as possible. If dressing becomes wet inside, replace it with clean, dry gauze. No bathing or otherwise soaking incisions. Do not apply any creams, lotions, or ointments to incisions. Special Rehabilitation Services Reason for rehabilitation: Post-operative therapy Rehab type: Physical therapy and Occupational therapy Quality VTE Deep Vein Thrombosis/Pulmonary Embolism Present on Admission: No MIPS - DC The patient has current or prior documentation of left ventricular ejection fraction (LVEF) less than 40%, or moderate or severely depressed left ventricular systolic function.: Yes A. The patient was prescribed or already taking an Angiotensin-Converting Enzyme (RIAZ) Inhibitor, or Angiotensin Receptor Brianna (ARB).: Yes B. The patient was prescribed or already taking a beta-brianna. [If Yes to Both A & B, STOP here]: Yes
--- NOTE | 2021-09-20 11:15 | PT-IP ANOTE ---
Attempted to see pt at 11:15 AM, pt refused therapy stating he would like to rest before going to SNF.
[2021-09-20] MEDS: ALBUTEROL 2.5 MG/3 ML NEB (ADULT) INH (11:34)
[2021-09-20 12:10] LABS: COVID19 -Nasal RAPID Negative (Negative)
--- NOTE | 2021-09-20 13:45 | PC.NURSE ---
Discharge Note Patient A&O, VSS, RA. [facility] Patient unable to void prior to discharge post pappas catheter removal this am. Bladder scan with PRV of MD Ginger aware, order to replace pappas. Pappas replaced by JAMES HOLMAN. Patient complaining of pain and medicated prior to discharge. Report called to JAMES Mishra, all questions/concerns addressed. PIV/Midline removed. All belongings packed along with discharge packet and given to facility staff. Valuables retrieved from safe and given to patient. Patient assisted to wheelchair and taken down by facility staff.
== END 2021-09-20 13:15 | DRG 481 ==
LOC: ED 18:09 → AC 18:23
PROVIDERS: Nurse Practitioner Family; Orthopaedic Surgery Foot and Ankle Surgery; Admitting Provider Internal Medicine; Emergency Provider Emergency Medicine; Referring Provider Emergency Medicine; Visit Provider Internal Medicine
PROC: 0QS736Z Reposition Left Upper Femur with Intramedullary Internal Fixation Device, Percutaneous Approach (ICD-10-PCS; CPT 27245; principal; 2021-09-16 16:30)
DX: M80.052A Age-related osteoporosis with current pathological fracture, left femur, initial encounter for fracture (principal); I50.22 Chronic systolic (congestive) heart failure; I5A Non-ischemic myocardial injury (non-traumatic); I25.5 Ischemic cardiomyopathy; E11.65 Type 2 diabetes mellitus with hyperglycemia; F41.9 Anxiety disorder, unspecified; R33.9 Retention of urine, unspecified; F17.290 Nicotine dependence, other tobacco product, uncomplicated; Z20.822 Contact with and (suspected) exposure to COVID-19
CPT/HCPCS: 36415; 36592; 71045; 73502; 73552; 76000; 80048; 80053; 80061; 80076; 82306; 82550; 82553; 82962; 83036; 83735; 83880; 84443; 84484; 85025; 85610; 85730; 86850; 86900; 86901; 87635; 93005; 93010; 93306; 94640; 94760; 96372; 96374; 97110; 97162; 97530; 99284; C9803; J0171; J0690; J1170; J1650; J1815; J2270; J2405; J2704; J3010; J3475; J7613; Q9957